=== PATIENT | female | born 1945 | race Caucasian/White ===

== ENCOUNTER 2019-04-27 00:54 | Inpatient (IN) | payer MEDICARE, MEDICAID ==
--- NOTE | 2019-04-27 01:26 | ED Physician Chart ---
ED Chief Complaint/HPI - Patient Information Date Seen:: 04/27/19 Time Seen:: 01:15 Chief Complaint:: agitation History of Present Illness:: Patient had spinal surgery on March 26 or . Since then she's been refusing to take her medicines and has been throwing feces. Patient had dementia diagnosed in 2012. Historian:: Patient, Family Member Review:: Nurse's Note Reviewed ED Review of Systems - Review of Systems General/Constitutional: No fever, No chills Skin: No skin lesions Head: No headache Eyes: No loss of vision ENT: No earache Neck: No neck pain Cardio Vascular: No chest pain Pulmonary: No SOB GI: No nausea, No vomiting, No diarrhea G/U: No dysuria Musculoskeletal: No bone or joint pain Endocrine: No polyuria Psychiatric: Prior psych history Hematopoietic: No bruising Allergic/Immuno: No urticaria Neurological: No syncope ED Past Medical History - Past Medical History Past Medical History: HTN, Dementia Family History: Diabetes Melitus Social History: Non Smoker, No Alcohol Surgical History: None Medication: Reviewed Family Medical History - Family Member Mother History Unknown: Yes ED Physical Exam - Physical Examination General/Constitutional: Well-developed, well-nourished, Alert Other Gen/Cons comments:: does not know the correct year Head: Atraumatic Eyes: Lids, conjuctiva normal, PERRL Skin: Nl inspection ENMT: External ears, nose nl, Lips, teeth, gums nl Neck: No nuchal rigidity Respiratory: Nl effort/Exclusion, Clear to Auscultation Cardio Vascular: RRR, No murmur, gallop, rubs, NL S1 S2 GI: No tenderness/rebounding/guarding, No organomegaly, No hernia, Normal BS's : No CVA tenderness Extremities: No edema Neuro/Psych: No focal deficits Misc: No paraspinal tenderness ED Labs/Radiology/EKG Results - Lab Results Comments:: Laboratory Results WBC 8.4 Th/cmm (4.8-10.8) 04/27/19 01:40 RBC 4.09 Mil/cmm (3.80-5.20) 04/27/19 01:40 Hgb 12.1 gm/dL (12-16) 04/27/19 01:40 Hct 36.7 % (41.0-60) L 04/27/19 01:40 MCV 89.6 fl (81-100) 04/27/19 01:40 MCH 29.7 pg (27.0-31.0) 04/27/19 01:40 MCHC Differential 33.1 pg (28.0-36.0) 04/27/19 01:40 RDW 14.9 % (11.5-20.0) 04/27/19 01:40 Plt Count 295 Th/cmm (150-400) 04/27/19 01:40 MPV 7.3 fl 04/27/19 01:40 Neutrophils % 50.1 % (40.0-80.0) 04/27/19 01:40 Lymphocytes % 35.1 % (20.0-50.0) 04/27/19 01:40 Monocytes % 11.1 % (2.0-10.0) H 04/27/19 01:40 Eosinophils % 3.7 % (0.0-5.0) 04/27/19 01:40 Basophils % 0.0 % (0.0-2.0) 04/27/19 01:40 Sodium 133 mEq/L (136-145) L 04/27/19 01:40 Potassium 3.5 mEq/L (3.5-5.1) 04/27/19 01:40 Chloride 103 mEq/L (98-107) 04/27/19 01:40 Carbon Dioxide 22.5 mEq/L (21.0-31.0) 04/27/19 01:40 Anion Gap 11.0 (7.0-16.0) 04/27/19 01:40 BUN 28 mg/dL (7-25) H 04/27/19 01:40 Creatinine 0.5 mg/dL (0.6-1.2) L 04/27/19 01:40 Est GFR ( Amer) TNP 04/27/19 01:40 Est GFR (Non-Af Amer) TNP 04/27/19 01:40 BUN/Creatinine Ratio 56.0 04/27/19 01:40 Glucose 110 mg/dL (70-105) H 04/27/19 01:40 Calcium 8.9 mg/dL (8.6-10.3) 04/27/19 01:40 Total Bilirubin 0.3 mg/dL (0.3-1.0) 04/27/19 01:40 AST 17 U/L (13-39) 04/27/19 01:40 ALT 16 U/L (7-52) 04/27/19 01:40 Alkaline Phosphatase 121 U/L (34-104) H 04/27/19 01:40 Total Protein 6.8 gm/dL (6.0-8.3) 04/27/19 01:40 Albumin 3.5 gm/dL (3.7-5.3) L 04/27/19 01:40 Globulin 3.3 gm/dL 04/27/19 01:40 Albumin/Globulin Ratio 1.1 (1.0-1.8) 04/27/19 01:40 Triglycerides 166 mg/dL (<150) H 04/27/19 01:40 Cholesterol 168 mg/dL (<200) 04/27/19 01:40 LDL Cholesterol Direct 120 mg/dL (75-193) 04/27/19 01:40 HDL Cholesterol 35 mg/dL (23-92) 04/27/19 01:40 - EKG Interpretations Rate & Rhythm: normal sinus rhythm with a rate of 75 [place]: normal Comments:: [facility] ED Septic Shock - . Is Septic Shock (SBP<90, OR Lactate>4 mmol\L) present?: No ED Reassessment (Disposition) - Reassessment Reassessment Condition:: Unchanged - Diagnosis Diagnosis:: Dementia with agitation - Patient Disposition Admitted to:: [facility] Admitting Medical Physician:: Anjana Martin Admitting Psych Physician:: Amos Castelan Condition at Disposition:: Stable, Unchanged
[2019-04-27 01:56] LABS: % EOSINOPHILS 3.7 % (0.0-5.0); % LYMPHOCYTES 35.1 % (20.0-50.0); % MONOCYTES 11.1 % (2.0-10.0); % NEUTROPHILS 50.1 % (40.0-80.0); EOSINOPHILE ABSOLUTE 0.3 Th/cmm (0.1-0.4); HEMATOCRIT 36.7 % (41.0-60); HEMOGLOBIN 12.1 gm/dL (12-16); LYMPHOCYTE ABSOLUTE 2.9 Th/cmm (1.5-3.0); MEAN CELL VOLUME 89.6 fl (81-100); MEAN CORPUSCULAR HEMOGLOBIN 29.7 pg (27.0-31.0); MEAN CORPUSCULAR HGB CONC 33.1 pg (28.0-36.0); MONOCYTE ABSOLUTE 0.9 Th/cmm (0.3-1.0); NEUTROPHILE ABSOLUTE 4.3 Th/cmm (1.8-8.0); PLATELET COUNT 295 Th/cmm (150-400); RED BLOOD COUNT 4.09 Mil/cmm (3.80-5.20); RED CELL DISTRIBUTION WIDTH 14.9 % (11.5-20.0); WHITE BLOOD COUNT 8.4 Th/cmm (4.8-10.8)
[2019-04-27 02:06] LABS: ALB/GLOB RATIO 1.1 (1.0-1.8); ALBUMIN 3.5 gm/dL (3.7-5.3); ALKALINE PHOSPHATASE 121 U/L (34-104); BILIRUBIN,TOTAL 0.3 mg/dL (0.3-1.0); BUN - UREA NITROGEN 28 mg/dL (7-25); CALCIUM SERUM 8.9 mg/dL (8.6-10.3); CARBON DIOXIDE 22.5 mEq/L (21.0-31.0); CHLORIDE 103 mEq/L (98-107); CHOLESTEROL 168 mg/dL (<200); CREATININE - SERUM 0.5 mg/dL (0.6-1.2); GLUCOSE 110 mg/dL (70-105); HDL -HIGH DENSITY LIPOPROTEIN 35 mg/dL (23-92); POTASSIUM SERUM 3.5 mEq/L (3.5-5.1); SGOT 17 U/L (13-39); SGPT/ALT 16 U/L (7-52); SODIUM SERUM 133 mEq/L (136-145); TOTAL PROTEIN,SERUM 6.8 gm/dL (6.0-8.3); TRIGLYCERIDES 166 mg/dL (<150)
[2019-04-27 03:58] VITALS: BP 131/60
[2019-04-27] MEDS ORDERED: Magnesium Hydroxide (MOM) 30 mL UDC PO PRN (04:10)
[2019-04-27] MEDS ORDERED: Maalox 30 mL Cup PO PRN (04:10)
[2019-04-27] MEDS: Venelex 60gm Tube TP SCH (14:50)
--- NOTE | 2019-04-27 21:15 | Psychiatric Evaluation ---
DATE OF SERVICE: 04/27/2019 INITIAL PSYCHIATRIC EVALUATION IDENTIFICATION DATA: The patient is a 74-year-old female with a history of dementia and psychosis. Apparently, started to refuse care at home and refusing the medications and throwing feces. The patient was becoming more agitated, angry and irritable. The patient was evaluated in the ER and admitted to the hospital. The patient is confused, not able to give much information, did not know her age. PAST PSYCHIATRIC HISTORY: Dementia and psychosis. PAST MEDICAL HISTORY: Spinal surgery recently. Diabetes, hypertension and dementia. PSYCHOSOCIAL HISTORY: The patient requires complete care. Family members are supportive. SUBSTANCE ABUSE HISTORY: Denied. MENTAL STATUS EXAMINATION: Speech is fluent, short sentences and relevant to topic. The patient is oriented to person, knew she was in some kind of facility did not know the name of the hospital. The patient did not know her age. The patient appears to be paranoid, guarded and forgetful. The patient's strengths, the patient is passively accepting treatment. The patient's weakness, lack of insight. ASSESSMENT: Rule out major depressive disorder, severe with psychosis; dementia, Alzheimer's type. MEDICAL: As per medical history. Stressors severe. PLAN: We will admit the patient for hospitalization. We will start with individual and group therapy, assess psychopharmacological intervention. ESTIMATED LENGTH OF STAY: 5-7 days. CRITERIA FOR DISCHARGE: Improved condition. Further stabilization and safe disposition, outpatient treatment plan. [facility]# [id number]
--- NOTE | 2019-04-28 02:03 | Psychiatric Evaluation ---
DATE OF SERVICE: INITIAL EVALUATION AND MENTAL STATUS EXAMINATION PATIENT'S AGE: 74 SEX: Female. PHYSICIAN: Dr. Stone. CHIEF COMPLAINT: Agitation and unable to care for self. HISTORY OF PRESENT ILLNESS: The patient is a 74-year-old female who had recent spinal surgery in the beginning of the month of March of this year. The patient since then has been refusing medications and has been angry and irritable mood and easily agitated. The patient also has been throwing her feces. She also has been having difficulty following any of staff directions and has been angry and in irritable mood. She also has been forgetful and unable to follow directions. PAST PSYCHIATRIC HISTORY: The patient has history of dementia. PAST MEDICAL HISTORY: The patient had recent spinal cord surgery. She also has hypertension. SOCIAL HISTORY: The patient is a poor historian and it is not clear if the patient lives with the family or by herself. ALLERGIES: No known allergies. MENTAL STATUS EXAMINATION: The patient appears older than her stated age. Anxious. Confused. Irritable mood. Thought processes are circumstantial, but ____ flight of ideas and ____. The patient seems to be preoccupied. She denies any hallucinations or delusions but seems to be preoccupied. The patient denies any thoughts of suicide or homicide. The patient is alert, but seems to be disoriented to time, place, person and situation. Impaired immediate and recent memory, but intact remote memory. Poor insight and poor judgment. ASSESSMENT: PRIMARY DIAGNOSIS: Unspecified psychosis. SECONDARY DIAGNOSIS: Dementia, moderate, with psychotic features and behavioral disturbances. TREATMENT PLAN: We will continue Namenda and Aricept and will adjust the dose. Might use antipsychotic medications. Also, continue working on behavioral modifications and adjusting psychotropic medications. ESTIMATED LENGTH OF STAY: 5-7 days PATIENT'S STRENGTHS AND WEAKNESSES: The patient's strength is not clear at this time. Weaknesses are ineffective coping. AFTER DISCHARGE PLAN: Outpatient treatment and followup will continue as an outpatient. CRITERIA FOR DISCHARGE: The patient will not be psychotic and will stabilize with psychotropic medications and will establish outpatient treatment plans. Also will have behavioral modification. [facility]# [id number]
--- NOTE | 2019-04-28 04:02 | History & Physical ---
ADMIT DATE: 04/27/2019 ADMITTING PHYSICIAN: Dr. Castelan. REASON FOR ADMISSION: Psychiatric disorder. HISTORY OF PRESENT ILLNESS: This is a 74-year-old female who was admitted for evaluation of underlying psychiatric illnesses by Dr. Castelan. Dr. Castelan requested medical H and P on this patient. The patient denies any medical complaints. PAST MEDICAL HISTORY: Hypertension. PAST SURGICAL HISTORY: No significant past surgical history. SOCIAL HISTORY: Lives at home. No reported alcohol, tobacco or drug use. CURRENT MEDICATIONS: Per medication reconciliation. ALLERGIES: No known drug allergies. REVIEW OF SYSTEMS: No reported fever, chills or diarrhea, no vomiting, no any other concern reported. PHYSICAL EXAMINATION: VITAL SIGNS: Temperature 98.4, pulse 103, respiration 20, blood pressure 151/76. HEENT: Unremarkable. HEART: S1, S2 normal. LUNGS: Clear to auscultation bilaterally. ABDOMEN: Soft, nontender. NEUROLOGIC: Awake, but confused. Moves all extremities. AVAILABLE LABORATORY DATA: ____. ASSESSMENT: 1. Hypertension. 2. Gastroesophageal reflux disease. 3. Mild hyponatremia. 4. Tachycardia. 5. Psychiatric disorder. PLAN: The patient will continue current blood pressure medication. Monitor lab and vitals. Psych management per psychiatrist. The patient is medically stable. Thank you Dr. Castelan and ____ for allowing us to participate in the care of this patient. [facility]# [id number]
[2019-04-28] MEDS: Venelex 60gm Tube TP SCH (09:27)
--- NOTE | 2019-04-28 19:35 | Progress Notes ---
DATE: 04/28/2019 SUBJECTIVE: The patient was seen, chart reviewed, still forgetful, confused, still irritable. The patient continues to require assistance from staff, but her appetite is fair, sleep is fair and she is taking her medications. ASSESSMENT: The patient is still confused and agitated. PLAN: Continue hospitalization and stabilization. Continue medication management. [facility]# [id number]
[2019-04-29] MEDS: Venelex 60gm Tube TP SCH (09:00)
--- NOTE | 2019-04-29 18:41 | Consultation ---
DATE OF CONSULTATION: 04/28/2019 REFERRING PHYSICIAN: Sharath Tang M.D. TYPE OF CONSULTATION: Psychology. HISTORY OF PRESENT ILLNESS: The patient is a 74-year-old female. The following is by review of the medical record and by the patient's self- report. The patient is being admitted due to increased agitation and anger outbursts as well as refusing medications at home. The record indicates that the patient also had been throwing her feces. The patient was evaluated in the ER and admitted to the geropsychiatric unit for stabilization. Upon interview, the patient is not making much sense and not providing much information. The patient is easily agitated and confused. PAST MEDICAL HISTORY: Please see history and physical by Dr. Becerril. PAST PSYCHIATRIC HISTORY: According to review of the medical record, the patient has a history of dementia. There are no other records available and the details are unknown. SUBSTANCE ABUSE HISTORY: The patient did not answer these questions. Review of the record indicates no history of alcohol, tobacco or illicit drug use. PSYCHOSOCIAL HISTORY: The patient lives at home with her family. The patient did not answer questions about occupational or educational history. The patient states that she is [employer] and that she is . The patient's daughter, Ashley, is very involved in her care. The patient did not answer questions about any history of physical or sexual abuse or any current legal problems. MENTAL STATUS EXAMINATION: The patient appears to be her stated age. The patient's attitude is guarded and superficially cooperative. Eye contact is poor. Speech is responsive. The patient is answering the clinical questions at times relevantly. The patient's mood is irritable and dysphoric. Affect is constricted. Thought process shows to be confused with possible paranoid ideation. The patient denied any auditory or visual hallucinations. There are no command type or persecutory type of delusions; however, the patient seems to be suspicious. The patient seems to be easily agitated. Impulse control is limited. Concentration is poor. The patient's sensorium is alert and oriented to self and place only. The patient did not participate in the memory assessment. The patient's short-term memory seems to be grossly intact. Long-term memory needs further evaluation and is possibly impaired. The patient did not participate in the interpretation of proverbs. Insight is poor. Judgment is compromised. DIAGNOSTIC IMPRESSION: AXIS I: 1. Dementia with behavioral disturbance. 2. Mood disorder, depressed due to medical condition. 3. Rule out major depressive disorder. AXIS II: Deferred. AXIS III: Per Dr. Becerril. TREATMENT PLAN: The patient has been seen by Dr. Tang for psychiatric evaluation and for the management of the patient's psychotropic medications. We will provide supportive psychotherapy to include reality orientation, differentiation, and integration. We will provide de-escalation and limit setting. We will encourage the patient to demonstrate emotional and self-regulation by verbalizing her concerns versus acting out. We will provide a simple anger management skill. We will provide coping strategies for phase of life issues. We will provide motivational enhancement for the patient to become compliant and stay compliant with all aspects of her care and treatment. Thank you, Dr. Tang for this consult and the opportunity to participate in this patient's care. [facility]# [id number] MTDCrystal
--- NOTE | 2019-04-29 20:58 | Progress Notes ---
DATE: SUBJECTIVE: Chart was reviewed and the patient interviewed. Also discussed the patient's condition with the staff and reviewed records and labs. The patient is still having episodes of confusion and irritability, but seems to be less. The patient also is upset with her roommate who is yelling and screaming, which disturbs her. The patient also is still anxious and guarded. Otherwise, the patient is compliant with taking her medications with no side effects of medications. ASSESSMENT: The patient is less agitated. TREATMENT PLAN: Continue to monitor behavior and condition closely. Also, continue adjusting psychotropic medications and work on behavioral modification. [facility]# [id number]
[2019-04-30] MEDS: Venelex 60gm Tube TP SCH (08:23)
--- NOTE | 2019-04-30 21:33 | Progress Notes ---
DATE: 04/30/2019 PSYCHOLOGY PROGRESS NOTE SUBJECTIVE: The patient is seen and is interviewed. Case is discussed with staff. The patient presents as confused and irritable. The patient is less agitated; however, the staff reports the patient is complaining about yelling episodes from her roommate. The patient continues to be guarded and confused about this junior underwriter's visit. Staff reports the patient is compliant with her medications. OBJECTIVE: Mood is irritable. Affect is constricted. Thought process shows to be confused. The patient denied any hallucinations or delusions. The patient is compliant with medication and is able to follow-through with staff direction. ASSESSMENT AND PLAN: The patient appears to be less agitated. We provided positive reinforcement for the patient to stay compliant with her care and treatment. We provided reality orientation, differentiation and integration. We encouraged the patient to verbalize her concerns versus acting out. We provided coping strategies for phase of life issues. We will follow up in 2 days to continue the present treatment if the patient remains admitted on the unit and psychology services are further ordered. JOB# [id number] SELVIN
[2019-05-01] MEDS: Venelex 60gm Tube TP SCH (09:06)
--- NOTE | 2019-05-01 15:06 | Progress Notes ---
DATE: 05/01/2019 SUBJECTIVE: Staff was spoken to. The patient is interviewed. Mood is getting easily irritable and affect is constricted. Insight and judgment are noted to be still impaired. Impulse control is noted to be limited. The patient is screaming and yelling and seems to be in need of constant reassurance. The patient has short-term memory problems. Long-term memory seems to be fair. ASSESSMENT: The patient is still impulsive. PLAN: To continue the patient with the supportive therapy, encouraged the patient to verbalize the concerns rather than to act out. JOB# [id number]
[2019-05-02] MEDS: Venelex 60gm Tube TP SCH (08:24)
--- NOTE | 2019-05-02 13:24 | Progress Notes ---
DATE: 05/02/2019 SUBJECTIVE: Staff was spoken to. The patient is interviewed. Mood is noted to be irritable. Affect is constricted. The patient is stating that she is constipated and staff are reporting that the patient seems to be fixated with her bowel movement and the patient has been isolative and withdrawn. Coping skills are noted to be very poor. The patient has short-term memory deficits. Long-term memory seems to be poor. The patient is reporting that her daughter came by to visit her last night and she is okay to go back to the facility. ASSESSMENT: The patient is still demented. PLAN: To continue the patient with the supportive therapy and closely monitor the patient's behavior. [facility]# [id number]
--- NOTE | 2019-05-02 13:56 | Internal Medicine Prog Note ---
Internal Medicine Subjective - Subjective Service Date: 05/02/19 Patient seen and examined:: with staff Patient is:: awake, verbal, agitated Patient Complaints of:: other (Patient is agressive.) Per staff patient has:: no adverse event, no episodes of fall Internal Medicine Objective - Results Result Diagrams: 04/27/19 01:40 04/27/19 01:40 Recent Labs: Laboratory Last Values WBC 8.4 Th/cmm (4.8-10.8) 04/27/19 01:40 RBC 4.09 Mil/cmm (3.80-5.20) 04/27/19 01:40 Hgb 12.1 gm/dL (12-16) 04/27/19 01:40 Hct 36.7 % (41.0-60) L 04/27/19 01:40 MCV 89.6 fl (81-100) 04/27/19 01:40 MCH 29.7 pg (27.0-31.0) 04/27/19 01:40 MCHC Differential 33.1 pg (28.0-36.0) 04/27/19 01:40 RDW 14.9 % (11.5-20.0) 04/27/19 01:40 Plt Count 295 Th/cmm (150-400) 04/27/19 01:40 MPV 7.3 fl 04/27/19 01:40 Neutrophils % 50.1 % (40.0-80.0) 04/27/19 01:40 Lymphocytes % 35.1 % (20.0-50.0) 04/27/19 01:40 Monocytes % 11.1 % (2.0-10.0) H 04/27/19 01:40 Eosinophils % 3.7 % (0.0-5.0) 04/27/19 01:40 Basophils % 0.0 % (0.0-2.0) 04/27/19 01:40 Sodium 133 mEq/L (136-145) L 04/27/19 01:40 Potassium 3.5 mEq/L (3.5-5.1) 04/27/19 01:40 Chloride 103 mEq/L (98-107) 04/27/19 01:40 Carbon Dioxide 22.5 mEq/L (21.0-31.0) 04/27/19 01:40 Anion Gap 11.0 (7.0-16.0) 04/27/19 01:40 BUN 28 mg/dL (7-25) H 04/27/19 01:40 Creatinine 0.5 mg/dL (0.6-1.2) L 04/27/19 01:40 Est GFR ( Amer) TNP 04/27/19 01:40 Est GFR (Non-Af Amer) TNP 04/27/19 01:40 BUN/Creatinine Ratio 56.0 04/27/19 01:40 Glucose 110 mg/dL (70-105) H 04/27/19 01:40 Calcium 8.9 mg/dL (8.6-10.3) 04/27/19 01:40 Total Bilirubin 0.3 mg/dL (0.3-1.0) 04/27/19 01:40 AST 17 U/L (13-39) 04/27/19 01:40 ALT 16 U/L (7-52) 04/27/19 01:40 Alkaline Phosphatase 121 U/L (34-104) H 04/27/19 01:40 Total Protein 6.8 gm/dL (6.0-8.3) 04/27/19 01:40 Albumin 3.5 gm/dL (3.7-5.3) L 04/27/19 01:40 Globulin 3.3 gm/dL 04/27/19 01:40 Albumin/Globulin Ratio 1.1 (1.0-1.8) 04/27/19 01:40 Triglycerides 166 mg/dL (<150) H 04/27/19 01:40 Cholesterol 168 mg/dL (<200) 04/27/19 01:40 LDL Cholesterol Direct 120 mg/dL (75-193) 04/27/19 01:40 HDL Cholesterol 35 mg/dL (23-92) 04/27/19 01:40 TSH 3.64 uIU/ml (0.34-5.60) 04/27/19 01:40 RPR NONREACTIVE (NONREACTIVE) 04/27/19 01:40 - Physical Exam Vitals and I&O: Vital Signs Temp 97.8 F 05/02/19 06:26 Pulse 96 05/02/19 08:23 Resp 18 05/02/19 06:26 BP 122/55 05/02/19 08:23 Pulse Ox 96 05/02/19 06:26 Intake & Output 05/01/19 05/02/19 05/02/19 18:59 06:59 18:59 Intake Total 120 Balance 120 Intake: Oral 120 Other: # Voids 3 3 # Bowel Movements 1 Stool Characteristics Formed Formed Brown Brown Active Medications: Current Medications Acetaminophen (Tylenol) 650 mg PO Q4HR PRN PRN Reason: Mild Pain / Temp above 100 Stop: 06/26/19 04:09 Last Admin: 04/29/19 23:58 Dose: 650 mg Al Hydrox/Mg Hydrox/Simethicone (Maalox) 30 ml PO Q4HR PRN PRN Reason: GI DISTRESS Stop: 06/26/19 04:09 Amlodipine Besylate (Norvasc) 10 mg PO DAILY [facility] Stop: 06/26/19 08:59 Last Admin: 05/02/19 08:23 Dose: 10 mg Aspirin (Ecotrin) 81 mg PO DAILY [facility] Stop: 06/26/19 08:59 Last Admin: 05/02/19 08:22 Dose: 81 mg Bisacodyl (Dulcolax 10 Mg Supp) 10 mg RC DAILY PRN PRN Reason: Constipation Stop: 07/01/19 09:41 [place] Oil/[place] Balsam/Trypsin (Venelex) 1 appl TP DAILY [facility] Stop: 06/26/19 13:14 Last Admin: 05/02/19 08:24 Dose: 1 appl Donepezil HCl (Aricept) 10 mg PO HS [facility] Stop: 06/26/19 20:59 Last Admin: 05/01/19 20:23 Dose: 10 mg Famotidine (Pepcid) 20 mg PO DAILY [facility]; Protocol Stop: 06/26/19 08:59 Last Admin: 05/02/19 08:22 Dose: 20 mg Ibuprofen (Motrin) 800 mg PO BID PRN PRN Reason: Pain (Moderate) Stop: 06/26/19 04:16 Last Admin: 05/01/19 12:56 Dose: 800 mg Ketoconazole (Nizoral 2% Cream) 0 appl TP DAILY [facility] Stop: 06/26/19 08:59 Last Admin: 05/02/19 08:24 Dose: 1 appl Lorazepam (Ativan) 0.5 mg PO Q4HR PRN; Protocol PRN Reason: Agitation Stop: 05/27/19 04:09 Last Admin: 05/01/19 06:01 Dose: 0.5 mg Magnesium Hydroxide (Milk Of Magnesia) 30 ml PO HS PRN PRN Reason: Constipation Memantine (Namenda) 5 mg PO BID [facility] Stop: 07/01/19 16:59 Zolpidem Tartrate (Ambien) 5 mg PO HS PRN PRN Reason: Insomnia Stop: 06/26/19 04:09 Last Admin: 04/30/19 20:37 Dose: 5 mg Physical Exam: Patient has been in irritable mood, continue to monitor. General: demented HEENT: NC/AT Neck: Supple Lungs: CTAB Cardiovascular: RRR, Normal S1, Normal S2 Abdomen: soft, non-tender Extremities: clear Neurological: no change Internal Medicine Assmt/Plan - Assessment Assessment: Psychiatric disorder. Hypertension. Gerd. Mild Hyponatremia. Tachycardia. - Plan Plan: Continuation of care. Monitor Labs. Continue present meds as directed. Monitor Diet/Nutritional support. Psych management per Psych. PT/OT prn. Safety precaution. Supportive care. Fall precaution, frequent nursing rounds, and as needed restraints to prevent fall. Continue collaborating with consulting specialists, case management and nursing team. Will Monitor patient and continue present care management. Nutritional Asmnt/Malnutr-PDOC - Dietary Evaluation Malnutrition Findings (Please click <Entered> for more info): Nutritional Asmnt/Malnutrition Start: 04/27/19 16: 52 Text: Status: Complete Freq: Protocol: Document 04/27/19 16:52 PAVITHRA (Rec: 04/27/19 16:55 PAVITHRA [email or web address]) Nutritional Asmnt/Malnutrition Patient General Information Nutritional Screening Moderate Risk Diagnosis Psychosis NOS Pertinent Medical Hx/Surgical Hx HTN, Dementia Subjective Information IA, Consult: Dehisced Incision L/S Spine area Pt is a 74-year-old female admitted today (04/27) d/t refusing medications and throwing feces. Per ER chart, Pt has spinal surgery early March. Per wound care note (04/27): Central Lower Lumbo-Sacral Area: Dehisced surgical incision, present on admission. Wound bed has 90% yellow slough, 10% brown slough. No odor, no drainage. Periwound intact. Wound measures 0.9 cm x 0.5 cm x 0.2 cm. Per RN, Pt ate about 60% breakfast and lunch today. Will continue to monitor PO intake and wound healing, as RN stated the surgical wound is barely opened, not draining . HT: 56 WT: 185 LB (84.09 kg) ABW: 144 LB (65.34 kg) BMI: 29.86 (Overweight) GI: WNL, soft, non-tender BM: Not Noted I/O: 240/Not Noted Skin: Area of concern Wound: Mid back 1x1 open Ezio: 20 Diet Order: Cardiac, GUILLERMINA Estimated Energy Needs: ( Geriatric, ABW) 7239-8922 kcals (25-30 kcals/ kg) 65-78g Pro (1.0-1.2 g/kg) 7239-5040 ml (25-30 ml/kg) Current Diet Order/ Nutrition Support Cardiac, GUILLERMINA Pertinent Medications Maalox (PRN), Pepcid, MOM (PRN ) Pertinent Labs 04/27: Hgb/Hct 12.1/36.7, Na 133 , BUN/Cr 28/0.5, Glucose 110, Alk Phos 121, Alb 3.5 Nutritional Hx/Data Height 1.68 m Height (Calculated Centimeters) 167.6 Current Weight (lbs) 83.915 kg Weight (Calculated Kilograms) 83.9 Weight (Calculated Grams) 77698.6 [place] Body Weight 130lb (59.09 kg) % [place] Body Weight 142 Body Mass Index (BMI) 29.8 Weight Status Overweight GI Symptoms GI Symptoms None Last BM Not noted Skin Integrity/Comment: Skin: Area of concern Wound: Mid back 1x1 open Ezio: 20 Current %PO Fair (50-74%) Estimated Nutritional Goals BEE in Kcals: Adj wt of IBW Calories/Kcals/Kg 25-30 Kcals Calculated 6367-5412 Protein: Adj wt of IBW Protein g/k.0-1.2 Protein Calculated 65-78 Fluid: ml 6286-2081 Nutritional Problem 1. Problem Problem Increased nutrient utilization Etiology r/t wound healing Signs/Symptoms: dehisced Incision L/S Spine area Malnutrition Related to Morbid Obesity Malnutrition related to morbid obesity No Intervention/Recommendation Comments 1. Continue with Cardiac, GUILLERMINA diet as ordered. 2. Continue to follow wound care instructions per note. Expected Outcomes/Goals Expected Outcomes/Goals 1. PO intake to meet 75% of nutritional needs. 2 .Monitor PO intake, wt, nutrition related labs, and skin integrity to trend WNL. 3. F/U as moderate risk in 3-5 days, 04/29-04/30
--- NOTE | 2019-05-03 03:18 | Progress Notes ---
DATE: 05/02/2019 PSYCHOLOGY PROGRESS NOTE SUBJECTIVE: The patient is seen in her room. The patient was interviewed. Case is discussed with staff. The patient is alert and responsive. The patient is stating that she is having difficulty with her daughter and she believes that her daughter was the one who placed her in the hospital. The patient states that she believes her daughter wants her to so that she does not have to take care of her. Staff reports the patient has been withdrawn , isolative and not attending any milieu therapy. OBJECTIVE: Mood is depressed and irritable. Affect is mood congruent. Thought process shows to be linear, but mostly circumstantial. The patient denied any auditory or visual hallucinations. However, there is possible paranoid ideation with a persecutory delusion. The patient has been taking her p.o. medications. The patient's behavior again has been withdrawn, anergic and anhedonic. ASSESSMENT AND PLAN: The patient is still having difficulty complying with treatment. We provided remotivation for the patient to become compliant with her treatment and to participate in the milieu therapy. We provided supportive psychotherapy to include reality integration. We provided coping strategies for phase of life issues. We provided solution focus therapy including problem solving and coping methods to assist the patient in being able to develop better communication with her daughter. We will follow up in 2 days to continue the present treatment if the patient is still admitted on the unit. JOB# [id number] MTDCrystal
[2019-05-03] MEDS: Venelex 60gm Tube TP SCH (09:33)
--- NOTE | 2019-05-03 10:40 | Internal Medicine Prog Note ---
Internal Medicine Subjective - Subjective Service Date: 05/03/19 Patient is:: awake, verbal, agitated Patient Complaints of:: other (Patient is agressive.) Per staff patient has:: no adverse event, no episodes of fall Internal Medicine Objective - Results Result Diagrams: 04/27/19 01:40 04/27/19 01:40 Recent Labs: Laboratory Last Values WBC 8.4 Th/cmm (4.8-10.8) 04/27/19 01:40 RBC 4.09 Mil/cmm (3.80-5.20) 04/27/19 01:40 Hgb 12.1 gm/dL (12-16) 04/27/19 01:40 Hct 36.7 % (41.0-60) L 04/27/19 01:40 MCV 89.6 fl (81-100) 04/27/19 01:40 MCH 29.7 pg (27.0-31.0) 04/27/19 01:40 MCHC Differential 33.1 pg (28.0-36.0) 04/27/19 01:40 RDW 14.9 % (11.5-20.0) 04/27/19 01:40 Plt Count 295 Th/cmm (150-400) 04/27/19 01:40 MPV 7.3 fl 04/27/19 01:40 Neutrophils % 50.1 % (40.0-80.0) 04/27/19 01:40 Lymphocytes % 35.1 % (20.0-50.0) 04/27/19 01:40 Monocytes % 11.1 % (2.0-10.0) H 04/27/19 01:40 Eosinophils % 3.7 % (0.0-5.0) 04/27/19 01:40 Basophils % 0.0 % (0.0-2.0) 04/27/19 01:40 Sodium 133 mEq/L (136-145) L 04/27/19 01:40 Potassium 3.5 mEq/L (3.5-5.1) 04/27/19 01:40 Chloride 103 mEq/L (98-107) 04/27/19 01:40 Carbon Dioxide 22.5 mEq/L (21.0-31.0) 04/27/19 01:40 Anion Gap 11.0 (7.0-16.0) 04/27/19 01:40 BUN 28 mg/dL (7-25) H 04/27/19 01:40 Creatinine 0.5 mg/dL (0.6-1.2) L 04/27/19 01:40 Est GFR ( Amer) TNP 04/27/19 01:40 Est GFR (Non-Af Amer) TNP 04/27/19 01:40 BUN/Creatinine Ratio 56.0 04/27/19 01:40 Glucose 110 mg/dL (70-105) H 04/27/19 01:40 Calcium 8.9 mg/dL (8.6-10.3) 04/27/19 01:40 Total Bilirubin 0.3 mg/dL (0.3-1.0) 04/27/19 01:40 AST 17 U/L (13-39) 04/27/19 01:40 ALT 16 U/L (7-52) 04/27/19 01:40 Alkaline Phosphatase 121 U/L (34-104) H 04/27/19 01:40 Total Protein 6.8 gm/dL (6.0-8.3) 04/27/19 01:40 Albumin 3.5 gm/dL (3.7-5.3) L 04/27/19 01:40 Globulin 3.3 gm/dL 04/27/19 01:40 Albumin/Globulin Ratio 1.1 (1.0-1.8) 04/27/19 01:40 Triglycerides 166 mg/dL (<150) H 04/27/19 01:40 Cholesterol 168 mg/dL (<200) 04/27/19 01:40 LDL Cholesterol Direct 120 mg/dL (75-193) 04/27/19 01:40 HDL Cholesterol 35 mg/dL (23-92) 04/27/19 01:40 TSH 3.64 uIU/ml (0.34-5.60) 04/27/19 01:40 RPR NONREACTIVE (NONREACTIVE) 04/27/19 01:40 - Physical Exam Vitals and I&O: Vital Signs Temp 97.2 F 05/03/19 06:31 Pulse 79 05/03/19 09:18 Resp 18 05/03/19 06:31 BP 116/63 05/03/19 09:18 Pulse Ox 99 05/03/19 06:31 Intake & Output 05/02/19 05/03/19 05/03/19 18:59 06:59 18:59 Intake Total 1200 240 Balance 1200 240 Intake: Oral 1200 240 Other: # Voids 3 1 # Bowel Movements 0 0 Stool Characteristics Formed Brown Active Medications: Current Medications Acetaminophen (Tylenol) 650 mg PO Q4HR PRN PRN Reason: Mild Pain / Temp above 100 Stop: 06/26/19 04:09 Last Admin: 04/29/19 23:58 Dose: 650 mg Al Hydrox/Mg Hydrox/Simethicone (Maalox) 30 ml PO Q4HR PRN PRN Reason: GI DISTRESS Stop: 06/26/19 04:09 Amlodipine Besylate (Norvasc) 10 mg PO DAILY [facility] Stop: 06/26/19 08:59 Last Admin: 05/03/19 09:18 Dose: 10 mg Aspirin (Ecotrin) 81 mg PO DAILY [facility] Stop: 06/26/19 08:59 Last Admin: 05/03/19 09:18 Dose: 81 mg Bisacodyl (Dulcolax 10 Mg Supp) 10 mg RC DAILY PRN PRN Reason: Constipation Stop: 07/01/19 09:41 [place] Oil/[place] Balsam/Trypsin (Venelex) 1 appl TP DAILY [facility] Stop: 06/26/19 13:14 Last Admin: 05/03/19 09:33 Dose: 1 appl Donepezil HCl (Aricept) 10 mg PO HS [facility] Stop: 06/26/19 20:59 Last Admin: 05/02/19 21:09 Dose: 10 mg Famotidine (Pepcid) 20 mg PO DAILY [facility]; Protocol Stop: 06/26/19 08:59 Last Admin: 05/03/19 09:19 Dose: 20 mg Ibuprofen (Motrin) 800 mg PO BID PRN PRN Reason: Pain (Moderate) Stop: 06/26/19 04:16 Last Admin: 05/01/19 12:56 Dose: 800 mg Ketoconazole (Nizoral 2% Cream) 0 appl TP DAILY [facility] Stop: 06/26/19 08:59 Last Admin: 05/03/19 09:19 Dose: 1 appl Lorazepam (Ativan) 0.5 mg PO Q4HR PRN; Protocol PRN Reason: Agitation Stop: 05/27/19 04:09 Last Admin: 05/01/19 06:01 Dose: 0.5 mg Magnesium Hydroxide (Milk Of Magnesia) 30 ml PO HS PRN PRN Reason: Constipation Memantine (Namenda) 5 mg PO BID [facility] Stop: 07/01/19 16:59 Last Admin: 05/03/19 09:18 Dose: 5 mg Zolpidem Tartrate (Ambien) 5 mg PO HS PRN PRN Reason: Insomnia Stop: 06/26/19 04:09 Last Admin: 04/30/19 20:37 Dose: 5 mg General: demented HEENT: NC/AT Neck: Supple Lungs: CTAB Cardiovascular: RRR, Normal S1, Normal S2 Abdomen: soft, non-tender Extremities: clear Neurological: no change Nutritional Asmnt/Malnutr-PDOC - Dietary Evaluation Malnutrition Findings (Please click <Entered> for more info): Nutritional Asmnt/Malnutrition Start: 04/27/19 16: 52 Text: Status: Complete Freq: Protocol: Document 04/27/19 16:52 PAVITHRA (Rec: 04/27/19 16:55 PAVITHRA [email or web address]) Nutritional Asmnt/Malnutrition Patient General Information Nutritional Screening Moderate Risk Diagnosis Psychosis NOS Pertinent Medical Hx/Surgical Hx HTN, Dementia Subjective Information IA, Consult: Dehisced Incision L/S Spine area Pt is a 74-year-old female admitted today (04/27) d/t refusing medications and throwing feces. Per ER chart, Pt has spinal surgery early March. Per wound care note (04/27): Central Lower Lumbo-Sacral Area: Dehisced surgical incision, present on admission. Wound bed has 90% yellow slough, 10% brown slough. No odor, no drainage. Periwound intact. Wound measures 0.9 cm x 0.5 cm x 0.2 cm. Per RN, Pt ate about 60% breakfast and lunch today. Will continue to monitor PO intake and wound healing, as RN stated the surgical wound is barely opened, not draining . HT: 56 WT: 185 LB (84.09 kg) ABW: 144 LB (65.34 kg) BMI: 29.86 (Overweight) GI: WNL, soft, non-tender BM: Not Noted I/O: 240/Not Noted Skin: Area of concern Wound: Mid back 1x1 open Ezio: 20 Diet Order: Cardiac, GUILLERMINA Estimated Energy Needs: ( Geriatric, ABW) 8244-4910 kcals (25-30 kcals/ kg) 65-78g Pro (1.0-1.2 g/kg) 5148-8188 ml (25-30 ml/kg) Current Diet Order/ Nutrition Support Cardiac, GUILLERMINA Pertinent Medications Maalox (PRN), Pepcid, MOM (PRN ) Pertinent Labs 04/27: Hgb/Hct 12.1/36.7, Na 133 , BUN/Cr 28/0.5, Glucose 110, Alk Phos 121, Alb 3.5 Nutritional Hx/Data Height 5 ft 6 in Height (Calculated Centimeters) 167.6 Current Weight (lbs) 185 lb Weight (Calculated Kilograms) 83.9 Weight (Calculated Grams) 61254.6 [place] Body Weight 130lb (59.09 kg) % [place] Body Weight 142 Body Mass Index (BMI) 29.8 Weight Status Overweight GI Symptoms GI Symptoms None Last BM Not noted Skin Integrity/Comment: Skin: Area of concern Wound: Mid back 1x1 open Ezio: 20 Current %PO Fair (50-74%) Estimated Nutritional Goals BEE in Kcals: Adj wt of IBW Calories/Kcals/Kg 25-30 Kcals Calculated 5083-8343 Protein: Adj wt of IBW Protein g/k.0-1.2 Protein Calculated 65-78 Fluid: ml 0350-4531 Nutritional Problem 1. Problem Problem Increased nutrient utilization Etiology r/t wound healing Signs/Symptoms: dehisced Incision L/S Spine area Malnutrition Related to Morbid Obesity Malnutrition related to morbid obesity No Intervention/Recommendation Comments 1. Continue with Cardiac, GUILLERMINA diet as ordered. 2. Continue to follow wound care instructions per note. Expected Outcomes/Goals Expected Outcomes/Goals 1. PO intake to meet 75% of nutritional needs. 2 .Monitor PO intake, wt, nutrition related labs, and skin integrity to trend WNL. 3. F/U as moderate risk in 3-5 days, 04/29-04/30
--- NOTE | 2019-05-03 11:07 | Progress Notes ---
DATE: 05/03/2019 SUBJECTIVE: Staff was spoken to. The patient is interviewed. Mood is noted to be dysphoric. Insight and judgment are noted to be still impaired. Impulse control is noted to be poor. The patient is fixated on her bowels. The patient is stating that she needs to have a suppository. The patient's staff are mentioning that they have given something like milk of magnesia yesterday and it is okay, but the patient is reported to have been having problems at this time, again asking for suppositories. Coping skills are noted to be very poor. The patient has short-term as well as long-term memory deficits. ASSESSMENT: The patient is demented and getting paranoid. PLAN: To continue the patient with the supportive therapy and followup. [facility]# [id number]
[2019-05-04] MEDS: Venelex 60gm Tube TP SCH (09:15)
--- NOTE | 2019-05-04 11:20 | Internal Medicine Prog Note ---
Internal Medicine Subjective - Subjective Service Date: 05/04/19 Patient seen and examined:: with staff Patient is:: awake, verbal, agitated Patient Complaints of:: other (Patient isstill very agressive.) Per staff patient has:: no adverse event, no episodes of fall Internal Medicine Objective - Results Result Diagrams: 04/27/19 01:40 04/27/19 01:40 Recent Labs: Laboratory Last Values WBC 8.4 Th/cmm (4.8-10.8) 04/27/19 01:40 RBC 4.09 Mil/cmm (3.80-5.20) 04/27/19 01:40 Hgb 12.1 gm/dL (12-16) 04/27/19 01:40 Hct 36.7 % (41.0-60) L 04/27/19 01:40 MCV 89.6 fl (81-100) 04/27/19 01:40 MCH 29.7 pg (27.0-31.0) 04/27/19 01:40 MCHC Differential 33.1 pg (28.0-36.0) 04/27/19 01:40 RDW 14.9 % (11.5-20.0) 04/27/19 01:40 Plt Count 295 Th/cmm (150-400) 04/27/19 01:40 MPV 7.3 fl 04/27/19 01:40 Neutrophils % 50.1 % (40.0-80.0) 04/27/19 01:40 Lymphocytes % 35.1 % (20.0-50.0) 04/27/19 01:40 Monocytes % 11.1 % (2.0-10.0) H 04/27/19 01:40 Eosinophils % 3.7 % (0.0-5.0) 04/27/19 01:40 Basophils % 0.0 % (0.0-2.0) 04/27/19 01:40 Sodium 133 mEq/L (136-145) L 04/27/19 01:40 Potassium 3.5 mEq/L (3.5-5.1) 04/27/19 01:40 Chloride 103 mEq/L (98-107) 04/27/19 01:40 Carbon Dioxide 22.5 mEq/L (21.0-31.0) 04/27/19 01:40 Anion Gap 11.0 (7.0-16.0) 04/27/19 01:40 BUN 28 mg/dL (7-25) H 04/27/19 01:40 Creatinine 0.5 mg/dL (0.6-1.2) L 04/27/19 01:40 Est GFR ( Amer) TNP 04/27/19 01:40 Est GFR (Non-Af Amer) TNP 04/27/19 01:40 BUN/Creatinine Ratio 56.0 04/27/19 01:40 Glucose 110 mg/dL (70-105) H 04/27/19 01:40 Calcium 8.9 mg/dL (8.6-10.3) 04/27/19 01:40 Total Bilirubin 0.3 mg/dL (0.3-1.0) 04/27/19 01:40 AST 17 U/L (13-39) 04/27/19 01:40 ALT 16 U/L (7-52) 04/27/19 01:40 Alkaline Phosphatase 121 U/L (34-104) H 04/27/19 01:40 Total Protein 6.8 gm/dL (6.0-8.3) 04/27/19 01:40 Albumin 3.5 gm/dL (3.7-5.3) L 04/27/19 01:40 Globulin 3.3 gm/dL 04/27/19 01:40 Albumin/Globulin Ratio 1.1 (1.0-1.8) 04/27/19 01:40 Triglycerides 166 mg/dL (<150) H 04/27/19 01:40 Cholesterol 168 mg/dL (<200) 04/27/19 01:40 LDL Cholesterol Direct 120 mg/dL (75-193) 04/27/19 01:40 HDL Cholesterol 35 mg/dL (23-92) 04/27/19 01:40 TSH 3.64 uIU/ml (0.34-5.60) 04/27/19 01:40 RPR NONREACTIVE (NONREACTIVE) 04/27/19 01:40 - Physical Exam Vitals and I&O: Vital Signs Temp 97.7 F 05/04/19 06:47 Pulse 77 05/04/19 09:14 Resp 18 05/04/19 06:47 BP 125/63 05/04/19 09:14 Pulse Ox 95 05/04/19 06:47 Intake & Output 05/03/19 05/04/19 05/04/19 18:59 06:59 18:59 Intake Total 1100 240 Balance 1100 240 Intake: Oral 1100 240 Other: # Voids 3 2 # Bowel Movements 0 0 Stool Characteristics Formed Brown Active Medications: Current Medications Acetaminophen (Tylenol) 650 mg PO Q4HR PRN PRN Reason: Mild Pain / Temp above 100 Stop: 06/26/19 04:09 Last Admin: 04/29/19 23:58 Dose: 650 mg Al Hydrox/Mg Hydrox/Simethicone (Maalox) 30 ml PO Q4HR PRN PRN Reason: GI DISTRESS Stop: 06/26/19 04:09 Amlodipine Besylate (Norvasc) 10 mg PO DAILY ALENA Stop: 06/26/19 08:59 Last Admin: 05/04/19 09:14 Dose: 10 mg Aspirin (Ecotrin) 81 mg PO DAILY ALENA Stop: 06/26/19 08:59 Last Admin: 05/04/19 09:14 Dose: 81 mg Bisacodyl (Dulcolax 10 Mg Supp) 10 mg RC DAILY PRN PRN Reason: IF MOM INEFFECTIVE Stop: 07/01/19 09:41 [place] Oil/[place] Balsam/Trypsin (Venelex) 1 appl TP DAILY ALENA Stop: 06/26/19 13:14 Last Admin: 05/04/19 09:15 Dose: 1 appl Donepezil HCl (Aricept) 10 mg PO HS ALENA Stop: 06/26/19 20:59 Last Admin: 05/03/19 20:43 Dose: 10 mg Famotidine (Pepcid) 20 mg PO DAILY ALENA; Protocol Stop: 06/26/19 08:59 Last Admin: 05/04/19 09:14 Dose: 20 mg Ibuprofen (Motrin) 800 mg PO BID PRN PRN Reason: Pain (Moderate) Stop: 06/26/19 04:16 Last Admin: 05/03/19 16:36 Dose: 800 mg Ketoconazole (Nizoral 2% Cream) 0 appl TP DAILY ALENA Stop: 06/26/19 08:59 Last Admin: 05/04/19 09:15 Dose: 1 appl Lorazepam (Ativan) 0.5 mg PO Q4HR PRN; Protocol PRN Reason: Agitation Stop: 05/27/19 04:09 Last Admin: 05/01/19 06:01 Dose: 0.5 mg Magnesium Hydroxide (Milk Of Magnesia) 30 ml PO HS PRN PRN Reason: Constipation Memantine (Namenda) 5 mg PO BID ALENA Stop: 07/01/19 16:59 Last Admin: 05/04/19 09:15 Dose: 5 mg Zolpidem Tartrate (Ambien) 5 mg PO HS PRN PRN Reason: Insomnia Stop: 06/26/19 04:09 Last Admin: 05/03/19 20:43 Dose: 5 mg Physical Exam: Patient has been still been irritable mood, continue to monitor. General: demented HEENT: NC/AT Neck: Supple Lungs: CTAB Cardiovascular: RRR, Normal S1, Normal S2 Abdomen: soft, non-tender Extremities: clear Neurological: no change Internal Medicine Assmt/Plan - Assessment Assessment: Psychiatric disorder. Hypertension. Gerd. Mild Hyponatremia. Tachycardia. - Plan Plan: Continuation of care. Monitor Labs. Continue present meds as directed. Monitor Diet/Nutritional support. Psych management per Psych. PT/OT prn. Safety precaution. Supportive care. Fall precaution, frequent nursing rounds, and as needed restraints to prevent fall. Continue collaborating with consulting specialists, case management and nursing team. Will Monitor patient and continue present care management. Nutritional Asmnt/Malnutr-PDOC - Dietary Evaluation Malnutrition Findings (Please click <Entered> for more info): Nutritional Asmnt/Malnutrition Start: 04/27/19 16: 52 Text: Status: Complete Freq: Protocol: Document 04/27/19 16:52 PAVITHRA (Rec: 04/27/19 16:55 PAVITHRA [email or web address]) Nutritional Asmnt/Malnutrition Patient General Information Nutritional Screening Moderate Risk Diagnosis Psychosis NOS Pertinent Medical Hx/Surgical Hx HTN, Dementia Subjective Information IA, Consult: Dehisced Incision L/S Spine area Pt is a 74-year-old female admitted today (04/27) d/t refusing medications and throwing feces. Per ER chart, Pt has spinal surgery early March. Per wound care note (04/27): Central Lower Lumbo-Sacral Area: Dehisced surgical incision, present on admission. Wound bed has 90% yellow slough, 10% brown slough. No odor, no drainage. Periwound intact. Wound measures 0.9 cm x 0.5 cm x 0.2 cm. Per RN, Pt ate about 60% breakfast and lunch today. Will continue to monitor PO intake and wound healing, as RN stated the surgical wound is barely opened, not draining . HT: 56 WT: 185 LB (84.09 kg) ABW: 144 LB (65.34 kg) BMI: 29.86 (Overweight) GI: WNL, soft, non-tender BM: Not Noted I/O: 240/Not Noted Skin: Area of concern Wound: Mid back 1x1 open Ezio: 20 Diet Order: Cardiac, GUILLERMINA Estimated Energy Needs: ( Geriatric, ABW) 0944-3287 kcals (25-30 kcals/ kg) 65-78g Pro (1.0-1.2 g/kg) 9291-7544 ml (25-30 ml/kg) Current Diet Order/ Nutrition Support Cardiac, GUILLERMINA Pertinent Medications Maalox (PRN), Pepcid, MOM (PRN ) Pertinent Labs 04/27: Hgb/Hct 12.1/36.7, Na 133 , BUN/Cr 28/0.5, Glucose 110, Alk Phos 121, Alb 3.5 Nutritional Hx/Data Height 1.68 m Height (Calculated Centimeters) 167.6 Current Weight (lbs) 83.915 kg Weight (Calculated Kilograms) 83.9 Weight (Calculated Grams) 05181.6 [place] Body Weight 130lb (59.09 kg) % [place] Body Weight 142 Body Mass Index (BMI) 29.8 Weight Status Overweight GI Symptoms GI Symptoms None Last BM Not noted Skin Integrity/Comment: Skin: Area of concern Wound: Mid back 1x1 open Ezio: 20 Current %PO Fair (50-74%) Estimated Nutritional Goals BEE in Kcals: Adj wt of IBW Calories/Kcals/Kg 25-30 Kcals Calculated 8376-4815 Protein: Adj wt of IBW Protein g/k.0-1.2 Protein Calculated 65-78 Fluid: ml 0327-1570 Nutritional Problem 1. Problem Problem Increased nutrient utilization Etiology r/t wound healing Signs/Symptoms: dehisced Incision L/S Spine area Malnutrition Related to Morbid Obesity Malnutrition related to morbid obesity No Intervention/Recommendation Comments 1. Continue with Cardiac, GUILLERMINA diet as ordered. 2. Continue to follow wound care instructions per note. Expected Outcomes/Goals Expected Outcomes/Goals 1. PO intake to meet 75% of nutritional needs. 2 .Monitor PO intake, wt, nutrition related labs, and skin integrity to trend WNL. 3. F/U as moderate risk in 3-5 days, 04/29-04/30
--- NOTE | 2019-05-05 05:01 | Progress Notes ---
DATE: 05/04/2019 PSYCHIATRIC PROGRESS NOTE SUBJECTIVE: Staff was spoken to. The patient is interviewed. Mood is noted to be irritable. Affect is constricted. The patient has been displaying very bizarre and regressive behavior. The patient has been trying to dig the feces out of her rectum. The patient's coping skills are noted to be extremely poor. The patient has been getting easily agitated and is not able to contract for safety and hence it is decided to start the patient on low dose of the Seroquel at nighttime and follow the patient with the supportive therapy. Please note that the patient's behavior is strictly danger to self and the patient is displaying regressive behavior. JOB# [id number]
[2019-05-05] MEDS: Venelex 60gm Tube TP SCH (08:47)
--- NOTE | 2019-05-05 16:14 | Internal Medicine Prog Note ---
Internal Medicine Subjective - Subjective Patient is:: awake, verbal, agitated Patient Complaints of:: other (Patient isstill very agressive.) Per staff patient has:: no adverse event, no episodes of fall Internal Medicine Objective - Results Result Diagrams: 04/27/19 01:40 04/27/19 01:40 Recent Labs: Laboratory Last Values WBC 8.4 Th/cmm (4.8-10.8) 04/27/19 01:40 RBC 4.09 Mil/cmm (3.80-5.20) 04/27/19 01:40 Hgb 12.1 gm/dL (12-16) 04/27/19 01:40 Hct 36.7 % (41.0-60) L 04/27/19 01:40 MCV 89.6 fl (81-100) 04/27/19 01:40 MCH 29.7 pg (27.0-31.0) 04/27/19 01:40 MCHC Differential 33.1 pg (28.0-36.0) 04/27/19 01:40 RDW 14.9 % (11.5-20.0) 04/27/19 01:40 Plt Count 295 Th/cmm (150-400) 04/27/19 01:40 MPV 7.3 fl 04/27/19 01:40 Neutrophils % 50.1 % (40.0-80.0) 04/27/19 01:40 Lymphocytes % 35.1 % (20.0-50.0) 04/27/19 01:40 Monocytes % 11.1 % (2.0-10.0) H 04/27/19 01:40 Eosinophils % 3.7 % (0.0-5.0) 04/27/19 01:40 Basophils % 0.0 % (0.0-2.0) 04/27/19 01:40 Sodium 133 mEq/L (136-145) L 04/27/19 01:40 Potassium 3.5 mEq/L (3.5-5.1) 04/27/19 01:40 Chloride 103 mEq/L (98-107) 04/27/19 01:40 Carbon Dioxide 22.5 mEq/L (21.0-31.0) 04/27/19 01:40 Anion Gap 11.0 (7.0-16.0) 04/27/19 01:40 BUN 28 mg/dL (7-25) H 04/27/19 01:40 Creatinine 0.5 mg/dL (0.6-1.2) L 04/27/19 01:40 Est GFR ( Amer) TNP 04/27/19 01:40 Est GFR (Non-Af Amer) TNP 04/27/19 01:40 BUN/Creatinine Ratio 56.0 04/27/19 01:40 Glucose 110 mg/dL (70-105) H 04/27/19 01:40 Calcium 8.9 mg/dL (8.6-10.3) 04/27/19 01:40 Total Bilirubin 0.3 mg/dL (0.3-1.0) 04/27/19 01:40 AST 17 U/L (13-39) 04/27/19 01:40 ALT 16 U/L (7-52) 04/27/19 01:40 Alkaline Phosphatase 121 U/L (34-104) H 04/27/19 01:40 Total Protein 6.8 gm/dL (6.0-8.3) 04/27/19 01:40 Albumin 3.5 gm/dL (3.7-5.3) L 04/27/19 01:40 Globulin 3.3 gm/dL 04/27/19 01:40 Albumin/Globulin Ratio 1.1 (1.0-1.8) 04/27/19 01:40 Triglycerides 166 mg/dL (<150) H 04/27/19 01:40 Cholesterol 168 mg/dL (<200) 04/27/19 01:40 LDL Cholesterol Direct 120 mg/dL (75-193) 04/27/19 01:40 HDL Cholesterol 35 mg/dL (23-92) 04/27/19 01:40 TSH 3.64 uIU/ml (0.34-5.60) 04/27/19 01:40 RPR NONREACTIVE (NONREACTIVE) 04/27/19 01:40 - Physical Exam Vitals and I&O: Vital Signs Temp 98.2 F 05/05/19 06:32 Pulse 88 05/05/19 08:47 Resp 20 05/05/19 06:32 BP 141/71 05/05/19 08:47 Pulse Ox 97 05/05/19 06:32 Intake & Output 05/04/19 05/05/19 05/05/19 18:59 06:59 18:59 Intake Total 1100 240 Output Total 1 Balance 1100 239 Intake: Oral 1100 240 Output: Urine/Stool Mix 1 Other: # Voids 3 1 # Bowel Movements 1 Active Medications: Current Medications Acetaminophen (Tylenol) 650 mg PO Q4HR PRN PRN Reason: Mild Pain / Temp above 100 Stop: 06/26/19 04:09 Last Admin: 04/29/19 23:58 Dose: 650 mg Al Hydrox/Mg Hydrox/Simethicone (Maalox) 30 ml PO Q4HR PRN PRN Reason: GI DISTRESS Stop: 06/26/19 04:09 Amlodipine Besylate (Norvasc) 10 mg PO DAILY ALENA Stop: 06/26/19 08:59 Last Admin: 05/05/19 08:47 Dose: 10 mg Aspirin (Ecotrin) 81 mg PO DAILY ALENA Stop: 06/26/19 08:59 Last Admin: 05/05/19 08:47 Dose: 81 mg Bisacodyl (Dulcolax 10 Mg Supp) 10 mg RC DAILY PRN PRN Reason: IF MOM INEFFECTIVE Stop: 07/01/19 09:41 [place] Oil/[place] Balsam/Trypsin (Venelex) 1 appl TP DAILY ALENA Stop: 06/26/19 13:14 Last Admin: 05/05/19 08:47 Dose: 1 appl Donepezil HCl (Aricept) 10 mg PO HS ALENA Stop: 06/26/19 20:59 Last Admin: 05/04/19 21:38 Dose: 10 mg Famotidine (Pepcid) 20 mg PO DAILY ALENA; Protocol Stop: 06/26/19 08:59 Last Admin: 05/05/19 08:47 Dose: 20 mg Ibuprofen (Motrin) 800 mg PO BID PRN PRN Reason: Pain (Moderate) Stop: 06/26/19 04:16 Last Admin: 05/04/19 16:41 Dose: 800 mg Ketoconazole (Nizoral 2% Cream) 0 appl TP DAILY ALENA Stop: 06/26/19 08:59 Last Admin: 05/05/19 08:47 Dose: 1 appl Lorazepam (Ativan) 0.5 mg PO Q4HR PRN; Protocol PRN Reason: Agitation Stop: 07/03/19 16:16 Last Admin: 05/04/19 16:48 Dose: 0.5 mg Magnesium Hydroxide (Milk Of Magnesia) 30 ml PO HS PRN PRN Reason: Constipation Memantine (Namenda) 5 mg PO BID ALENA Stop: 07/01/19 16:59 Last Admin: 05/05/19 08:48 Dose: 5 mg Quetiapine Fumarate (Seroquel) 12.5 mg PO HS ALENA; Protocol Stop: 07/03/19 20:59 Last Admin: 05/04/19 21:38 Dose: 12.5 mg Zolpidem Tartrate (Ambien) 5 mg PO HS PRN PRN Reason: Insomnia Stop: 07/03/19 16:18 Last Admin: 05/04/19 21:38 Dose: 5 mg Physical Exam: Patient has been still been irritable mood, continue to monitor. General: demented HEENT: NC/AT Neck: Supple Lungs: CTAB Cardiovascular: RRR, Normal S1, Normal S2 Abdomen: soft, non-tender Extremities: clear Neurological: no change Internal Medicine Assmt/Plan - Assessment Assessment: Psychiatric disorder. Hypertension. Gerd. Mild Hyponatremia. Tachycardia. - Plan Plan: Continuation of care. Monitor Labs. Continue present meds as directed. Monitor Diet/Nutritional support. Psych management per Psych. PT/OT prn. Safety precaution. Supportive care. Fall precaution, frequent nursing rounds, and as needed restraints to prevent fall. Continue collaborating with consulting specialists, case management and nursing team. Will Monitor patient and continue present care management. Nutritional Asmnt/Malnutr-PDOC - Dietary Evaluation Malnutrition Findings (Please click <Entered> for more info): Nutritional Asmnt/Malnutrition Start: 04/27/19 16: 52 Text: Status: Complete Freq: Protocol: Document 04/27/19 16:52 DEE DEEMUS (Rec: 04/27/19 16:55 PAVITHRA [email or web address]) Nutritional Asmnt/Malnutrition Patient General Information Nutritional Screening Moderate Risk Diagnosis Psychosis NOS Pertinent Medical Hx/Surgical Hx HTN, Dementia Subjective Information IA, Consult: Dehisced Incision L/S Spine area Pt is a 74-year-old female admitted today (04/27) d/t refusing medications and throwing feces. Per ER chart, Pt has spinal surgery early March. Per wound care note (8/2): Central Lower Lumbo-Sacral Area: Dehisced surgical incision, present on admission. Wound bed has 90% yellow slough, 10% brown slough. No odor, no drainage. Periwound intact. Wound measures 0.9 cm x 0.5 cm x 0.2 cm. Per RN, Pt ate about 60% breakfast and lunch today. Will continue to monitor PO intake and wound healing, as RN stated the surgical wound is barely opened, not draining . HT: 56 WT: 185 LB (84.09 kg) ABW: 144 LB (65.34 kg) BMI: 29.86 (Overweight) GI: WNL, soft, non-tender BM: Not Noted I/O: 240/Not Noted Skin: Area of concern Wound: Mid back 1x1 open Ezio: 20 Diet Order: Cardiac, GUILLERMINA Estimated Energy Needs: ( Geriatric, ABW) 9470-2717 kcals (25-30 kcals/ kg) 65-78g Pro (1.0-1.2 g/kg) 4943-2088 ml (25-30 ml/kg) Current Diet Order/ Nutrition Support Cardiac, GUILLERMINA Pertinent Medications Maalox (PRN), Pepcid, MOM (PRN ) Pertinent Labs 04/27: Hgb/Hct 12.1/36.7, Na 133 , BUN/Cr 28/0.5, Glucose 110, Alk Phos 121, Alb 3.5 Nutritional Hx/Data Height 1.68 m Height (Calculated Centimeters) 167.6 Current Weight (lbs) 83.915 kg Weight (Calculated Kilograms) 83.9 Weight (Calculated Grams) 62885.6 [place] Body Weight 130lb (59.09 kg) % [place] Body Weight 142 Body Mass Index (BMI) 29.8 Weight Status Overweight GI Symptoms GI Symptoms None Last BM Not noted Skin Integrity/Comment: Skin: Area of concern Wound: Mid back 1x1 open Ezio: 20 Current %PO Fair (50-74%) Estimated Nutritional Goals BEE in Kcals: Adj wt of IBW Calories/Kcals/Kg 25-30 Kcals Calculated 2500-2374 Protein: Adj wt of IBW Protein g/k.0-1.2 Protein Calculated 65-78 Fluid: ml 4456-9517 Nutritional Problem 1. Problem Problem Increased nutrient utilization Etiology r/t wound healing Signs/Symptoms: dehisced Incision L/S Spine area Malnutrition Related to Morbid Obesity Malnutrition related to morbid obesity No Intervention/Recommendation Comments 1. Continue with Cardiac, GUILLERMINA diet as ordered. 2. Continue to follow wound care instructions per note. Expected Outcomes/Goals Expected Outcomes/Goals 1. PO intake to meet 75% of nutritional needs. 2 .Monitor PO intake, wt, nutrition related labs, and skin integrity to trend WNL. 3. F/U as moderate risk in 3-5 days, 04/29-04/30
--- NOTE | 2019-05-05 19:09 | Internal Medicine Prog Note ---
Internal Medicine Subjective - Subjective Service Date: 05/05/19 Patient seen and examined:: with staff Patient is:: awake, verbal, agitated Patient Complaints of:: other (Patient isstill very agressive.) Per staff patient has:: no adverse event, no episodes of fall Internal Medicine Objective - Results Result Diagrams: 04/27/19 01:40 04/27/19 01:40 Recent Labs: Laboratory Last Values WBC 8.4 Th/cmm (4.8-10.8) 04/27/19 01:40 RBC 4.09 Mil/cmm (3.80-5.20) 04/27/19 01:40 Hgb 12.1 gm/dL (12-16) 04/27/19 01:40 Hct 36.7 % (41.0-60) L 04/27/19 01:40 MCV 89.6 fl (81-100) 04/27/19 01:40 MCH 29.7 pg (27.0-31.0) 04/27/19 01:40 MCHC Differential 33.1 pg (28.0-36.0) 04/27/19 01:40 RDW 14.9 % (11.5-20.0) 04/27/19 01:40 Plt Count 295 Th/cmm (150-400) 04/27/19 01:40 MPV 7.3 fl 04/27/19 01:40 Neutrophils % 50.1 % (40.0-80.0) 04/27/19 01:40 Lymphocytes % 35.1 % (20.0-50.0) 04/27/19 01:40 Monocytes % 11.1 % (2.0-10.0) H 04/27/19 01:40 Eosinophils % 3.7 % (0.0-5.0) 04/27/19 01:40 Basophils % 0.0 % (0.0-2.0) 04/27/19 01:40 Sodium 133 mEq/L (136-145) L 04/27/19 01:40 Potassium 3.5 mEq/L (3.5-5.1) 04/27/19 01:40 Chloride 103 mEq/L (98-107) 04/27/19 01:40 Carbon Dioxide 22.5 mEq/L (21.0-31.0) 04/27/19 01:40 Anion Gap 11.0 (7.0-16.0) 04/27/19 01:40 BUN 28 mg/dL (7-25) H 04/27/19 01:40 Creatinine 0.5 mg/dL (0.6-1.2) L 04/27/19 01:40 Est GFR ( Amer) TNP 04/27/19 01:40 Est GFR (Non-Af Amer) TNP 04/27/19 01:40 BUN/Creatinine Ratio 56.0 04/27/19 01:40 Glucose 110 mg/dL (70-105) H 04/27/19 01:40 Calcium 8.9 mg/dL (8.6-10.3) 04/27/19 01:40 Total Bilirubin 0.3 mg/dL (0.3-1.0) 04/27/19 01:40 AST 17 U/L (13-39) 04/27/19 01:40 ALT 16 U/L (7-52) 04/27/19 01:40 Alkaline Phosphatase 121 U/L (34-104) H 04/27/19 01:40 Total Protein 6.8 gm/dL (6.0-8.3) 04/27/19 01:40 Albumin 3.5 gm/dL (3.7-5.3) L 04/27/19 01:40 Globulin 3.3 gm/dL 04/27/19 01:40 Albumin/Globulin Ratio 1.1 (1.0-1.8) 04/27/19 01:40 Triglycerides 166 mg/dL (<150) H 04/27/19 01:40 Cholesterol 168 mg/dL (<200) 04/27/19 01:40 LDL Cholesterol Direct 120 mg/dL (75-193) 04/27/19 01:40 HDL Cholesterol 35 mg/dL (23-92) 04/27/19 01:40 TSH 3.64 uIU/ml (0.34-5.60) 04/27/19 01:40 RPR NONREACTIVE (NONREACTIVE) 04/27/19 01:40 - Physical Exam Vitals and I&O: Vital Signs Temp 98.8 F 05/05/19 14:00 Pulse 94 05/05/19 14:00 Resp 20 05/05/19 14:00 BP 123/66 05/05/19 14:00 Pulse Ox 98 05/05/19 14:00 Intake & Output 05/05/19 05/05/19 05/06/19 06:59 18:59 06:59 Intake Total 240 960 Output Total 1 Balance 239 960 Intake: Oral 240 960 Output: Urine/Stool Mix 1 Other: # Voids 1 4 # Bowel Movements 1 Active Medications: Current Medications Acetaminophen (Tylenol) 650 mg PO Q4HR PRN PRN Reason: Mild Pain / Temp above 100 Stop: 06/26/19 04:09 Last Admin: 04/29/19 23:58 Dose: 650 mg Al Hydrox/Mg Hydrox/Simethicone (Maalox) 30 ml PO Q4HR PRN PRN Reason: GI DISTRESS Stop: 06/26/19 04:09 Amlodipine Besylate (Norvasc) 10 mg PO DAILY [facility] Stop: 06/26/19 08:59 Last Admin: 05/05/19 08:47 Dose: 10 mg Aspirin (Ecotrin) 81 mg PO DAILY ALENA Stop: 06/26/19 08:59 Last Admin: 05/05/19 08:47 Dose: 81 mg Bisacodyl (Dulcolax 10 Mg Supp) 10 mg RC DAILY PRN PRN Reason: IF MOM INEFFECTIVE Stop: 07/01/19 09:41 [place] Oil/[place] Balsam/Trypsin (Venelex) 1 appl TP DAILY [facility] Stop: 06/26/19 13:14 Last Admin: 05/05/19 08:47 Dose: 1 appl Donepezil HCl (Aricept) 10 mg PO HS ALENA Stop: 06/26/19 20:59 Last Admin: 05/04/19 21:38 Dose: 10 mg Famotidine (Pepcid) 20 mg PO DAILY ALENA; Protocol Stop: 06/26/19 08:59 Last Admin: 05/05/19 08:47 Dose: 20 mg Ibuprofen (Motrin) 800 mg PO BID PRN PRN Reason: Pain (Moderate) Stop: 06/26/19 04:16 Last Admin: 05/04/19 16:41 Dose: 800 mg Ketoconazole (Nizoral 2% Cream) 0 appl TP DAILY ALENA Stop: 06/26/19 08:59 Last Admin: 05/05/19 08:47 Dose: 1 appl Lorazepam (Ativan) 0.5 mg PO Q4HR PRN; Protocol PRN Reason: Agitation Stop: 07/03/19 16:16 Last Admin: 05/04/19 16:48 Dose: 0.5 mg Magnesium Hydroxide (Milk Of Magnesia) 30 ml PO HS PRN PRN Reason: Constipation Memantine (Namenda) 5 mg PO BID ALENA Stop: 07/01/19 16:59 Last Admin: 05/05/19 16:43 Dose: 5 mg Quetiapine Fumarate (Seroquel) 12.5 mg PO HS ALENA; Protocol Stop: 07/03/19 20:59 Last Admin: 05/04/19 21:38 Dose: 12.5 mg Zolpidem Tartrate (Ambien) 5 mg PO HS PRN PRN Reason: Insomnia Stop: 07/03/19 16:18 Last Admin: 05/04/19 21:38 Dose: 5 mg Physical Exam: Patient remains agitated and in aggressive mood, continue to monitor. General: demented HEENT: NC/AT Neck: Supple Lungs: CTAB Cardiovascular: RRR, Normal S1, Normal S2 Abdomen: soft, non-tender Extremities: clear Neurological: no change Internal Medicine Assmt/Plan - Assessment Assessment: Psychiatric disorder. Hypertension. Gerd. Mild Hyponatremia. Tachycardia. - Plan Plan: Continuation of care. Monitor Labs. Continue present meds as directed. Monitor Diet/Nutritional support. Psych management per Psych. PT/OT prn. Safety precaution. Supportive care. Fall precaution, frequent nursing rounds, and as needed restraints to prevent fall. Continue collaborating with consulting specialists, case management and nursing team. Will Monitor patient and continue present care management. Nutritional Asmnt/Malnutr-PDOC - Dietary Evaluation Malnutrition Findings (Please click <Entered> for more info): Nutritional Asmnt/Malnutrition Start: 04/27/19 16: 52 Text: Status: Complete Freq: Protocol: Document 04/27/19 16:52 PAVITHRA (Rec: 04/27/19 16:55 PAVITHRA [email or web address]) Nutritional Asmnt/Malnutrition Patient General Information Nutritional Screening Moderate Risk Diagnosis Psychosis NOS Pertinent Medical Hx/Surgical Hx HTN, Dementia Subjective Information IA, Consult: Dehisced Incision L/S Spine area Pt is a 74-year-old female admitted today (04/27) d/t refusing medications and throwing feces. Per ER chart, Pt has spinal surgery early March. Per wound care note (04/27): Central Lower Lumbo-Sacral Area: Dehisced surgical incision, present on admission. Wound bed has 90% yellow slough, 10% brown slough. No odor, no drainage. Periwound intact. Wound measures 0.9 cm x 0.5 cm x 0.2 cm. Per RN, Pt ate about 60% breakfast and lunch today. Will continue to monitor PO intake and wound healing, as RN stated the surgical wound is barely opened, not draining . HT: 56 WT: 185 LB (84.09 kg) ABW: 144 LB (65.34 kg) BMI: 29.86 (Overweight) GI: WNL, soft, non-tender BM: Not Noted I/O: 240/Not Noted Skin: Area of concern Wound: Mid back 1x1 open Ezio: 20 Diet Order: Cardiac, GUILLERMINA Estimated Energy Needs: ( Geriatric, ABW) 1817-0737 kcals (25-30 kcals/ kg) 65-78g Pro (1.0-1.2 g/kg) 1163-6688 ml (25-30 ml/kg) Current Diet Order/ Nutrition Support Cardiac, GUILLERMINA Pertinent Medications Maalox (PRN), Pepcid, MOM (PRN ) Pertinent Labs 04/27: Hgb/Hct 12.1/36.7, Na 133 , BUN/Cr 28/0.5, Glucose 110, Alk Phos 121, Alb 3.5 Nutritional Hx/Data Height 1.68 m Height (Calculated Centimeters) 167.6 Current Weight (lbs) 83.915 kg Weight (Calculated Kilograms) 83.9 Weight (Calculated Grams) 38446.6 [place] Body Weight 130lb (59.09 kg) % [place] Body Weight 142 Body Mass Index (BMI) 29.8 Weight Status Overweight GI Symptoms GI Symptoms None Last BM Not noted Skin Integrity/Comment: Skin: Area of concern Wound: Mid back 1x1 open Ezio: 20 Current %PO Fair (50-74%) Estimated Nutritional Goals BEE in Kcals: Adj wt of IBW Calories/Kcals/Kg 25-30 Kcals Calculated 5055-2306 Protein: Adj wt of IBW Protein g/k.0-1.2 Protein Calculated 65-78 Fluid: ml 8442-4806 Nutritional Problem 1. Problem Problem Increased nutrient utilization Etiology r/t wound healing Signs/Symptoms: dehisced Incision L/S Spine area Malnutrition Related to Morbid Obesity Malnutrition related to morbid obesity No Intervention/Recommendation Comments 1. Continue with Cardiac, GUILLERMINA diet as ordered. 2. Continue to follow wound care instructions per note. Expected Outcomes/Goals Expected Outcomes/Goals 1. PO intake to meet 75% of nutritional needs. 2 .Monitor PO intake, wt, nutrition related labs, and skin integrity to trend WNL. 3. F/U as moderate risk in 3-5 days, 04/29-04/30
--- NOTE | 2019-05-05 20:51 | Progress Notes ---
DATE: 05/05/2019 PSYCHIATRIC PROGRESS NOTE SUBJECTIVE: Staff was spoken to. The patient is interviewed. Mood is noted to be irritable. Affect is constricted. The patient is very disheveled and paranoid. The patient has been trying to fingers and then did take the feces out of the rectum. The patient has no insight into her illness. Coping skills are noted to be very poor. The patient is fixated on her bowels. ASSESSMENT: The patient is still demented and paranoid. PLAN: To continue the patient with the supportive therapy, encouraged the patient to verbalize the concerns rather than to act out. [facility]# [id number]
[2019-05-06] MEDS: Venelex 60gm Tube TP SCH (09:07)
--- NOTE | 2019-05-06 15:17 | Internal Medicine Prog Note ---
Internal Medicine Subjective - Subjective Service Date: 05/06/19 Patient seen and examined:: with staff Patient is:: awake, verbal, agitated Patient Complaints of:: other (Patient is very confused.) Per staff patient has:: no adverse event, no episodes of fall Internal Medicine Objective - Results Result Diagrams: 04/27/19 01:40 04/27/19 01:40 Recent Labs: Laboratory Last Values WBC 8.4 Th/cmm (4.8-10.8) 04/27/19 01:40 RBC 4.09 Mil/cmm (3.80-5.20) 04/27/19 01:40 Hgb 12.1 gm/dL (12-16) 04/27/19 01:40 Hct 36.7 % (41.0-60) L 04/27/19 01:40 MCV 89.6 fl (81-100) 04/27/19 01:40 MCH 29.7 pg (27.0-31.0) 04/27/19 01:40 MCHC Differential 33.1 pg (28.0-36.0) 04/27/19 01:40 RDW 14.9 % (11.5-20.0) 04/27/19 01:40 Plt Count 295 Th/cmm (150-400) 04/27/19 01:40 MPV 7.3 fl 04/27/19 01:40 Neutrophils % 50.1 % (40.0-80.0) 04/27/19 01:40 Lymphocytes % 35.1 % (20.0-50.0) 04/27/19 01:40 Monocytes % 11.1 % (2.0-10.0) H 04/27/19 01:40 Eosinophils % 3.7 % (0.0-5.0) 04/27/19 01:40 Basophils % 0.0 % (0.0-2.0) 04/27/19 01:40 Sodium 133 mEq/L (136-145) L 04/27/19 01:40 Potassium 3.5 mEq/L (3.5-5.1) 04/27/19 01:40 Chloride 103 mEq/L (98-107) 04/27/19 01:40 Carbon Dioxide 22.5 mEq/L (21.0-31.0) 04/27/19 01:40 Anion Gap 11.0 (7.0-16.0) 04/27/19 01:40 BUN 28 mg/dL (7-25) H 04/27/19 01:40 Creatinine 0.5 mg/dL (0.6-1.2) L 04/27/19 01:40 Est GFR ( Amer) TNP 04/27/19 01:40 Est GFR (Non-Af Amer) TNP 04/27/19 01:40 BUN/Creatinine Ratio 56.0 04/27/19 01:40 Glucose 110 mg/dL (70-105) H 04/27/19 01:40 Calcium 8.9 mg/dL (8.6-10.3) 04/27/19 01:40 Total Bilirubin 0.3 mg/dL (0.3-1.0) 04/27/19 01:40 AST 17 U/L (13-39) 04/27/19 01:40 ALT 16 U/L (7-52) 04/27/19 01:40 Alkaline Phosphatase 121 U/L (34-104) H 04/27/19 01:40 Total Protein 6.8 gm/dL (6.0-8.3) 04/27/19 01:40 Albumin 3.5 gm/dL (3.7-5.3) L 04/27/19 01:40 Globulin 3.3 gm/dL 04/27/19 01:40 Albumin/Globulin Ratio 1.1 (1.0-1.8) 04/27/19 01:40 Triglycerides 166 mg/dL (<150) H 04/27/19 01:40 Cholesterol 168 mg/dL (<200) 04/27/19 01:40 LDL Cholesterol Direct 120 mg/dL (75-193) 04/27/19 01:40 HDL Cholesterol 35 mg/dL (23-92) 04/27/19 01:40 TSH 3.64 uIU/ml (0.34-5.60) 04/27/19 01:40 RPR NONREACTIVE (NONREACTIVE) 04/27/19 01:40 - Physical Exam Vitals and I&O: Vital Signs Temp 97.6 F 05/06/19 14:00 Pulse 89 05/06/19 14:00 Resp 20 05/06/19 14:00 BP 115/60 05/06/19 14:00 Pulse Ox 96 08/11/19 14:00 Intake & Output 05/05/19 05/06/19 05/06/19 18:59 06:59 18:59 Intake Total 960 120 Balance 960 120 Intake: Oral 960 120 Other: # Voids 4 3 # Bowel Movements 1 Active Medications: Current Medications Acetaminophen (Tylenol) 650 mg PO Q4HR PRN PRN Reason: Mild Pain / Temp above 100 Stop: 06/26/19 04:09 Last Admin: 04/29/19 23:58 Dose: 650 mg Al Hydrox/Mg Hydrox/Simethicone (Maalox) 30 ml PO Q4HR PRN PRN Reason: GI DISTRESS Stop: 06/26/19 04:09 Amlodipine Besylate (Norvasc) 10 mg PO DAILY [facility] Stop: 06/26/19 08:59 Last Admin: 05/06/19 09:06 Dose: 10 mg Aspirin (Ecotrin) 81 mg PO DAILY ALENA Stop: 06/26/19 08:59 Last Admin: 05/06/19 09:07 Dose: 81 mg Bisacodyl (Dulcolax 10 Mg Supp) 10 mg RC DAILY PRN PRN Reason: IF MOM INEFFECTIVE Stop: 07/01/19 09:41 [place] Oil/[place] Balsam/Trypsin (Venelex) 1 appl TP DAILY ALENA Stop: 06/26/19 13:14 Last Admin: 05/06/19 09:07 Dose: 1 appl Donepezil HCl (Aricept) 10 mg PO HS ALENA Stop: 06/26/19 20:59 Last Admin: 05/05/19 20:54 Dose: 10 mg Famotidine (Pepcid) 20 mg PO DAILY ALNEA; Protocol Stop: 06/26/19 08:59 Last Admin: 05/06/19 09:07 Dose: 20 mg Ibuprofen (Motrin) 800 mg PO BID PRN PRN Reason: Pain (Moderate) Stop: 06/26/19 04:16 Last Admin: 05/06/19 11:15 Dose: 800 mg Ketoconazole (Nizoral 2% Cream) 0 appl TP DAILY ALENA Stop: 06/26/19 08:59 Last Admin: 05/06/19 09:08 Dose: 1 appl Lorazepam (Ativan) 0.5 mg PO Q4HR PRN; Protocol PRN Reason: Agitation Stop: 07/03/19 16:16 Last Admin: 05/04/19 16:48 Dose: 0.5 mg Magnesium Hydroxide (Milk Of Magnesia) 30 ml PO HS PRN PRN Reason: Constipation Memantine (Namenda) 5 mg PO BID ALENA Stop: 07/01/19 16:59 Last Admin: 05/06/19 09:07 Dose: 5 mg Quetiapine Fumarate (Seroquel) 25 mg PO HS ALENA; Protocol Stop: 07/05/19 20:59 Zolpidem Tartrate (Ambien) 5 mg PO HS PRN PRN Reason: Insomnia Stop: 07/03/19 16:18 Last Admin: 05/05/19 20:54 Dose: 5 mg Physical Exam: Patient is very confused, fixated on her bowels, continue to monitor, poor coping skills. General: demented HEENT: NC/AT Neck: Supple Lungs: CTAB Cardiovascular: RRR, Normal S1, Normal S2 Abdomen: soft, non-tender Extremities: clear Neurological: no change Internal Medicine Assmt/Plan - Assessment Assessment: Paranoia. Demented. Psychiatric disorder. Hypertension. Gerd. Mild Hyponatremia. Tachycardia. - Plan Plan: Continuation of care. Monitor Labs. Continue present meds as directed. Monitor Diet/Nutritional support. Psych management per Psych. PT/OT prn. Safety precaution. Supportive care. Fall precaution, frequent nursing rounds, and as needed restraints to prevent fall. Continue collaborating with consulting specialists, case management and nursing team. Will Monitor patient and continue present care management. Nutritional Asmnt/Malnutr-PDOC - Dietary Evaluation Malnutrition Findings (Please click <Entered> for more info): Nutritional Asmnt/Malnutrition Start: 04/27/19 16: 52 Text: Status: Complete Freq: Protocol: Document 04/27/19 16:52 PAVITHRA (Rec: 04/27/19 16:55 PAVITHRA [email or web address]) Nutritional Asmnt/Malnutrition Patient General Information Nutritional Screening Moderate Risk Diagnosis Psychosis NOS Pertinent Medical Hx/Surgical Hx HTN, Dementia Subjective Information IA, Consult: Dehisced Incision L/S Spine area Pt is a 74-year-old female admitted today (04/27) d/t refusing medications and throwing feces. Per ER chart, Pt has spinal surgery early March. Per wound care note (04/27): Central Lower Lumbo-Sacral Area: Dehisced surgical incision, present on admission. Wound bed has 90% yellow slough, 10% brown slough. No odor, no drainage. Periwound intact. Wound measures 0.9 cm x 0.5 cm x 0.2 cm. Per RN, Pt ate about 60% breakfast and lunch today. Will continue to monitor PO intake and wound healing, as RN stated the surgical wound is barely opened, not draining . HT: 56 WT: 185 LB (84.09 kg) ABW: 144 LB (65.34 kg) BMI: 29.86 (Overweight) GI: WNL, soft, non-tender BM: Not Noted I/O: 240/Not Noted Skin: Area of concern Wound: Mid back 1x1 open Ezio: 20 Diet Order: Cardiac, GUILLERMINA Estimated Energy Needs: ( Geriatric, ABW) 6195-9901 kcals (25-30 kcals/ kg) 65-78g Pro (1.0-1.2 g/kg) 8875-4348 ml (25-30 ml/kg) Current Diet Order/ Nutrition Support Cardiac, GUILLERMINA Pertinent Medications Maalox (PRN), Pepcid, MOM (PRN ) Pertinent Labs 04/27: Hgb/Hct 12.1/36.7, Na 133 , BUN/Cr 28/0.5, Glucose 110, Alk Phos 121, Alb 3.5 Nutritional Hx/Data Height 1.68 m Height (Calculated Centimeters) 167.6 Current Weight (lbs) 83.915 kg Weight (Calculated Kilograms) 83.9 Weight (Calculated Grams) 27332.6 [place] Body Weight 130lb (59.09 kg) % [place] Body Weight 142 Body Mass Index (BMI) 29.8 Weight Status Overweight GI Symptoms GI Symptoms None Last BM Not noted Skin Integrity/Comment: Skin: Area of concern Wound: Mid back 1x1 open Ezio: 20 Current %PO Fair (50-74%) Estimated Nutritional Goals BEE in Kcals: Adj wt of IBW Calories/Kcals/Kg 25-30 Kcals Calculated 8747-5843 Protein: Adj wt of IBW Protein g/k.0-1.2 Protein Calculated 65-78 Fluid: ml 0365-7073 Nutritional Problem 1. Problem Problem Increased nutrient utilization Etiology r/t wound healing Signs/Symptoms: dehisced Incision L/S Spine area Malnutrition Related to Morbid Obesity Malnutrition related to morbid obesity No Intervention/Recommendation Comments 1. Continue with Cardiac, GUILLERMINA diet as ordered. 2. Continue to follow wound care instructions per note. Expected Outcomes/Goals Expected Outcomes/Goals 1. PO intake to meet 75% of nutritional needs. 2 .Monitor PO intake, wt, nutrition related labs, and skin integrity to trend WNL. 3. F/U as moderate risk in 3-5 days, 04/29-04/30
--- NOTE | 2019-05-06 21:54 | Progress Notes ---
DATE: 05/06/2019 PSYCHIATRIC PROGRESS NOTE SUBJECTIVE: Staff was spoken to. The patient is interviewed. Mood is noted to be irritable. Affect is constricted. Coping skills are noted to be poor. The patient has been noted to be paranoid and has been focused on her bowel movement. The patient is stating that she needs a suppository because she has been constipated. The patient seems to have a difficult time with these paranoid delusions and somatic preoccupation. PLAN: To increase the dose on the Seroquel to 25 mg and follow the patient with the supportive therapy. [facility]# [id number]
--- NOTE | 2019-05-07 11:08 | Internal Medicine Prog Note ---
Internal Medicine Subjective - Subjective Service Date: 05/07/19 Patient is:: awake, verbal, agitated Patient Complaints of:: other (Patient is very confused.) Per staff patient has:: no adverse event, no episodes of fall Internal Medicine Objective - Results Result Diagrams: 04/27/19 01:40 04/27/19 01:40 Recent Labs: Laboratory Last Values WBC 8.4 Th/cmm (4.8-10.8) 04/27/19 01:40 RBC 4.09 Mil/cmm (3.80-5.20) 04/27/19 01:40 Hgb 12.1 gm/dL (12-16) 04/27/19 01:40 Hct 36.7 % (41.0-60) L 04/27/19 01:40 MCV 89.6 fl (81-100) 04/27/19 01:40 MCH 29.7 pg (27.0-31.0) 04/27/19 01:40 MCHC Differential 33.1 pg (28.0-36.0) 04/27/19 01:40 RDW 14.9 % (11.5-20.0) 04/27/19 01:40 Plt Count 295 Th/cmm (150-400) 04/27/19 01:40 MPV 7.3 fl 04/27/19 01:40 Neutrophils % 50.1 % (40.0-80.0) 04/27/19 01:40 Lymphocytes % 35.1 % (20.0-50.0) 04/27/19 01:40 Monocytes % 11.1 % (2.0-10.0) H 04/27/19 01:40 Eosinophils % 3.7 % (0.0-5.0) 04/27/19 01:40 Basophils % 0.0 % (0.0-2.0) 04/27/19 01:40 Sodium 133 mEq/L (136-145) L 04/27/19 01:40 Potassium 3.5 mEq/L (3.5-5.1) 04/27/19 01:40 Chloride 103 mEq/L (98-107) 04/27/19 01:40 Carbon Dioxide 22.5 mEq/L (21.0-31.0) 04/27/19 01:40 Anion Gap 11.0 (7.0-16.0) 04/27/19 01:40 BUN 28 mg/dL (7-25) H 04/27/19 01:40 Creatinine 0.5 mg/dL (0.6-1.2) L 04/27/19 01:40 Est GFR ( Amer) TNP 04/27/19 01:40 Est GFR (Non-Af Amer) TNP 04/27/19 01:40 BUN/Creatinine Ratio 56.0 04/27/19 01:40 Glucose 110 mg/dL (70-105) H 04/27/19 01:40 Calcium 8.9 mg/dL (8.6-10.3) 04/27/19 01:40 Total Bilirubin 0.3 mg/dL (0.3-1.0) 04/27/19 01:40 AST 17 U/L (13-39) 04/27/19 01:40 ALT 16 U/L (7-52) 04/27/19 01:40 Alkaline Phosphatase 121 U/L (34-104) H 04/27/19 01:40 Total Protein 6.8 gm/dL (6.0-8.3) 04/27/19 01:40 Albumin 3.5 gm/dL (3.7-5.3) L 04/27/19 01:40 Globulin 3.3 gm/dL 04/27/19 01:40 Albumin/Globulin Ratio 1.1 (1.0-1.8) 04/27/19 01:40 Triglycerides 166 mg/dL (<150) H 04/27/19 01:40 Cholesterol 168 mg/dL (<200) 04/27/19 01:40 LDL Cholesterol Direct 120 mg/dL (75-193) 04/27/19 01:40 HDL Cholesterol 35 mg/dL (23-92) 04/27/19 01:40 TSH 3.64 uIU/ml (0.34-5.60) 04/27/19 01:40 RPR NONREACTIVE (NONREACTIVE) 04/27/19 01:40 - Physical Exam Vitals and I&O: Vital Signs Temp 98 F 05/07/19 06:28 Pulse 94 05/07/19 09:06 Resp 20 05/07/19 06:28 BP 145/86 05/07/19 09:06 Pulse Ox 98 05/07/19 06:28 Intake & Output 05/06/19 05/07/19 05/07/19 18:59 06:59 18:59 Intake Total 800 120 Balance 800 120 Intake: Oral 800 120 Other: # Voids 3 3 # Bowel Movements 1 Active Medications: Current Medications Acetaminophen (Tylenol) 650 mg PO Q4HR PRN PRN Reason: Mild Pain / Temp above 100 Stop: 06/26/19 04:09 Last Admin: 04/29/19 23:58 Dose: 650 mg Al Hydrox/Mg Hydrox/Simethicone (Maalox) 30 ml PO Q4HR PRN PRN Reason: GI DISTRESS Stop: 06/26/19 04:09 Amlodipine Besylate (Norvasc) 10 mg PO DAILY ALENA Stop: 06/26/19 08:59 Last Admin: 05/07/19 09:06 Dose: 10 mg Aspirin (Ecotrin) 81 mg PO DAILY [facility] Stop: 06/26/19 08:59 Last Admin: 05/07/19 09:06 Dose: 81 mg Bisacodyl (Dulcolax 10 Mg Supp) 10 mg RC DAILY PRN PRN Reason: IF MOM INEFFECTIVE Stop: 07/01/19 09:41 [place] Oil/[place] Balsam/Trypsin (Venelex) 1 appl TP DAILY ALENA Stop: 06/26/19 13:14 Last Admin: 05/06/19 09:07 Dose: 1 appl Donepezil HCl (Aricept) 10 mg PO HS ALENA Stop: 06/26/19 20:59 Last Admin: 05/06/19 21:19 Dose: 10 mg Famotidine (Pepcid) 20 mg PO DAILY ALENA; Protocol Stop: 06/26/19 08:59 Last Admin: 05/07/19 09:06 Dose: 20 mg Ibuprofen (Motrin) 800 mg PO BID PRN PRN Reason: Pain (Moderate) Stop: 06/26/19 04:16 Last Admin: 05/06/19 11:15 Dose: 800 mg Ketoconazole (Nizoral 2% Cream) 0 appl TP DAILY ALENA Stop: 06/26/19 08:59 Last Admin: 05/06/19 09:08 Dose: 1 appl Lorazepam (Ativan) 0.5 mg PO Q4HR PRN; Protocol PRN Reason: Agitation Stop: 07/03/19 16:16 Last Admin: 05/04/19 16:48 Dose: 0.5 mg Magnesium Hydroxide (Milk Of Magnesia) 30 ml PO HS PRN PRN Reason: Constipation Memantine (Namenda) 5 mg PO BID ALENA Stop: 07/01/19 16:59 Last Admin: 05/07/19 09:06 Dose: 5 mg Quetiapine Fumarate (Seroquel) 25 mg PO HS ALENA; Protocol Stop: 07/05/19 20:59 Last Admin: 05/06/19 21:18 Dose: 25 mg Zolpidem Tartrate (Ambien) 5 mg PO HS PRN PRN Reason: Insomnia Stop: 07/03/19 16:18 Last Admin: 05/06/19 21:18 Dose: 5 mg Physical Exam: Patient is still dis-oriented, fixated on her bowels, continue to monitor, very poor coping skills. General: demented HEENT: NC/AT Neck: Supple Lungs: CTAB Cardiovascular: RRR, Normal S1, Normal S2 Abdomen: soft, non-tender Extremities: clear Neurological: no change Internal Medicine Assmt/Plan - Assessment Assessment: Paranoia. Demented. Psychiatric disorder. Hypertension. Gerd. Mild Hyponatremia. Tachycardia. - Plan Plan: Continuation of care. Monitor Labs. Continue present meds as directed. Monitor Diet/Nutritional support. Psych management per Psych. PT/OT prn. Safety precaution. Supportive care. Fall precaution, frequent nursing rounds, and as needed restraints to prevent fall. Continue collaborating with consulting specialists, case management and nursing team. Will Monitor patient and continue present care management. Nutritional Asmnt/Malnutr-PDOC - Dietary Evaluation Malnutrition Findings (Please click <Entered> for more info): Nutritional Asmnt/Malnutrition Start: 04/27/19 16: 52 Text: Status: Complete Freq: Protocol: Document 04/27/19 16:52 PAVITHRA (Rec: 04/27/19 16:55 PAVITHRA [email or web address]) Nutritional Asmnt/Malnutrition Patient General Information Nutritional Screening Moderate Risk Diagnosis Psychosis NOS Pertinent Medical Hx/Surgical Hx HTN, Dementia Subjective Information IA, Consult: Dehisced Incision L/S Spine area Pt is a 74-year-old female admitted today (04/27) d/t refusing medications and throwing feces. Per ER chart, Pt has spinal surgery early March. Per wound care note (04/27): Central Lower Lumbo-Sacral Area: Dehisced surgical incision, present on admission. Wound bed has 90% yellow slough, 10% brown slough. No odor, no drainage. Periwound intact. Wound measures 0.9 cm x 0.5 cm x 0.2 cm. Per RN, Pt ate about 60% breakfast and lunch today. Will continue to monitor PO intake and wound healing, as RN stated the surgical wound is barely opened, not draining . HT: 56 WT: 185 LB (84.09 kg) ABW: 144 LB (65.34 kg) BMI: 29.86 (Overweight) GI: WNL, soft, non-tender BM: Not Noted I/O: 240/Not Noted Skin: Area of concern Wound: Mid back 1x1 open Ezio: 20 Diet Order: Cardiac, GUILLERMINA Estimated Energy Needs: ( Geriatric, ABW) 0350-9652 kcals (25-30 kcals/ kg) 65-78g Pro (1.0-1.2 g/kg) 6165-4815 ml (25-30 ml/kg) Current Diet Order/ Nutrition Support Cardiac, GUILLERMINA Pertinent Medications Maalox (PRN), Pepcid, MOM (PRN ) Pertinent Labs 04/27: Hgb/Hct 12.1/36.7, Na 133 , BUN/Cr 28/0.5, Glucose 110, Alk Phos 121, Alb 3.5 Nutritional Hx/Data Height 1.68 m Height (Calculated Centimeters) 167.6 Current Weight (lbs) 83.915 kg Weight (Calculated Kilograms) 83.9 Weight (Calculated Grams) 11045.6 [place] Body Weight 130lb (59.09 kg) % [place] Body Weight 142 Body Mass Index (BMI) 29.8 Weight Status Overweight GI Symptoms GI Symptoms None Last BM Not noted Skin Integrity/Comment: Skin: Area of concern Wound: Mid back 1x1 open Ezio: 20 Current %PO Fair (50-74%) Estimated Nutritional Goals BEE in Kcals: Adj wt of IBW Calories/Kcals/Kg 25-30 Kcals Calculated 2974-6822 Protein: Adj wt of IBW Protein g/k.0-1.2 Protein Calculated 65-78 Fluid: ml 7345-3667 Nutritional Problem 1. Problem Problem Increased nutrient utilization Etiology r/t wound healing Signs/Symptoms: dehisced Incision L/S Spine area Malnutrition Related to Morbid Obesity Malnutrition related to morbid obesity No Intervention/Recommendation Comments 1. Continue with Cardiac, GUILLERMINA diet as ordered. 2. Continue to follow wound care instructions per note. Expected Outcomes/Goals Expected Outcomes/Goals 1. PO intake to meet 75% of nutritional needs. 2 .Monitor PO intake, wt, nutrition related labs, and skin integrity to trend WNL. 3. F/U as moderate risk in 3-5 days, 04/29-04/30
[2019-05-07] MEDS: Venelex 60gm Tube TP SCH (11:58)
--- NOTE | 2019-05-08 02:46 | Progress Notes ---
DATE: 05/07/2019 PSYCHIATRIC PROGRESS NOTE SUBJECTIVE: Staff was spoken to. The patient is interviewed. Mood is noted to be less irritable. Affect is appropriate. The patient, however, continues to be very paranoid. The patient has been fixated on her bowels. The patient's behavior at times is noted to be very primitive. No side effects to the medications are noted. The patient is currently on 25 mg of the Seroquel and has been able to tolerate it. ASSESSMENT: The patient is still psychotic and demented. PLAN: To continue the patient with the supportive therapy and followup. JOB# [id number]
[2019-05-08] MEDS: Venelex 60gm Tube TP SCH (08:20)
--- NOTE | 2019-05-08 16:21 | Internal Medicine Prog Note ---
Internal Medicine Subjective - Subjective Service Date: 05/08/19 Patient seen and examined:: with staff Patient is:: awake, verbal, agitated Patient Complaints of:: other (Patient is very confused and paranoid.) Per staff patient has:: no adverse event, no episodes of fall Internal Medicine Objective - Results Result Diagrams: 04/27/19 01:40 04/27/19 01:40 Recent Labs: Laboratory Last Values WBC 8.4 Th/cmm (4.8-10.8) 04/27/19 01:40 RBC 4.09 Mil/cmm (3.80-5.20) 04/27/19 01:40 Hgb 12.1 gm/dL (12-16) 04/27/19 01:40 Hct 36.7 % (41.0-60) L 04/27/19 01:40 MCV 89.6 fl (81-100) 04/27/19 01:40 MCH 29.7 pg (27.0-31.0) 04/27/19 01:40 MCHC Differential 33.1 pg (28.0-36.0) 04/27/19 01:40 RDW 14.9 % (11.5-20.0) 04/27/19 01:40 Plt Count 295 Th/cmm (150-400) 04/27/19 01:40 MPV 7.3 fl 04/27/19 01:40 Neutrophils % 50.1 % (40.0-80.0) 04/27/19 01:40 Lymphocytes % 35.1 % (20.0-50.0) 04/27/19 01:40 Monocytes % 11.1 % (2.0-10.0) H 04/27/19 01:40 Eosinophils % 3.7 % (0.0-5.0) 04/27/19 01:40 Basophils % 0.0 % (0.0-2.0) 04/27/19 01:40 Sodium 133 mEq/L (136-145) L 04/27/19 01:40 Potassium 3.5 mEq/L (3.5-5.1) 04/27/19 01:40 Chloride 103 mEq/L (98-107) 04/27/19 01:40 Carbon Dioxide 22.5 mEq/L (21.0-31.0) 04/27/19 01:40 Anion Gap 11.0 (7.0-16.0) 04/27/19 01:40 BUN 28 mg/dL (7-25) H 04/27/19 01:40 Creatinine 0.5 mg/dL (0.6-1.2) L 04/27/19 01:40 Est GFR ( Amer) TNP 04/27/19 01:40 Est GFR (Non-Af Amer) TNP 04/27/19 01:40 BUN/Creatinine Ratio 56.0 04/27/19 01:40 Glucose 110 mg/dL (70-105) H 04/27/19 01:40 Calcium 8.9 mg/dL (8.6-10.3) 04/27/19 01:40 Total Bilirubin 0.3 mg/dL (0.3-1.0) 04/27/19 01:40 AST 17 U/L (13-39) 04/27/19 01:40 ALT 16 U/L (7-52) 04/27/19 01:40 Alkaline Phosphatase 121 U/L (34-104) H 04/27/19 01:40 Total Protein 6.8 gm/dL (6.0-8.3) 04/27/19 01:40 Albumin 3.5 gm/dL (3.7-5.3) L 04/27/19 01:40 Globulin 3.3 gm/dL 04/27/19 01:40 Albumin/Globulin Ratio 1.1 (1.0-1.8) 04/27/19 01:40 Triglycerides 166 mg/dL (<150) H 04/27/19 01:40 Cholesterol 168 mg/dL (<200) 04/27/19 01:40 LDL Cholesterol Direct 120 mg/dL (75-193) 04/27/19 01:40 HDL Cholesterol 35 mg/dL (23-92) 04/27/19 01:40 TSH 3.64 uIU/ml (0.34-5.60) 04/27/19 01:40 RPR NONREACTIVE (NONREACTIVE) 04/27/19 01:40 - Physical Exam Vitals and I&O: Vital Signs Temp 97.8 F 05/08/19 06:27 Pulse 79 05/08/19 08:19 Resp 20 05/08/19 06:27 BP 135/66 05/08/19 08:19 Pulse Ox 97 05/08/19 06:27 Intake & Output 05/07/19 05/08/19 05/08/19 18:59 06:59 18:59 Intake Total 850 240 Output Total 1 Balance 850 239 Intake: Oral 850 240 Output: Urine/Stool Mix 1 Other: # Voids 3 3 # Bowel Movements 1 0 Active Medications: Current Medications Acetaminophen (Tylenol) 650 mg PO Q4HR PRN PRN Reason: Mild Pain / Temp above 100 Stop: 06/26/19 04:09 Last Admin: 04/29/19 23:58 Dose: 650 mg Al Hydrox/Mg Hydrox/Simethicone (Maalox) 30 ml PO Q4HR PRN PRN Reason: GI DISTRESS Stop: 06/26/19 04:09 Amlodipine Besylate (Norvasc) 10 mg PO DAILY [facility] Stop: 06/26/19 08:59 Last Admin: 05/08/19 08:19 Dose: 10 mg Aspirin (Ecotrin) 81 mg PO DAILY ALENA Stop: 06/26/19 08:59 Last Admin: 05/08/19 08:19 Dose: 81 mg Bisacodyl (Dulcolax 10 Mg Supp) 10 mg RC DAILY PRN PRN Reason: IF MOM INEFFECTIVE Stop: 07/01/19 09:41 [place] Oil/[place] Balsam/Trypsin (Venelex) 1 appl TP DAILY ALENA Stop: 06/26/19 13:14 Last Admin: 05/08/19 08:20 Dose: 1 appl Donepezil HCl (Aricept) 10 mg PO HS ALENA Stop: 06/26/19 20:59 Last Admin: 05/07/19 21:28 Dose: 10 mg Famotidine (Pepcid) 20 mg PO DAILY ALENA; Protocol Stop: 06/26/19 08:59 Last Admin: 05/08/19 08:19 Dose: 20 mg Ibuprofen (Motrin) 800 mg PO BID PRN PRN Reason: Pain (Moderate) Stop: 06/26/19 04:16 Last Admin: 05/08/19 08:18 Dose: 800 mg Ketoconazole (Nizoral 2% Cream) 0 appl TP DAILY ALENA Stop: 06/26/19 08:59 Last Admin: 05/08/19 08:21 Dose: 1 appl Lorazepam (Ativan) 0.5 mg PO Q4HR PRN; Protocol PRN Reason: Agitation Stop: 07/03/19 16:16 Last Admin: 05/08/19 08:22 Dose: 0.5 mg Magnesium Hydroxide (Milk Of Magnesia) 30 ml PO HS PRN PRN Reason: Constipation Memantine (Namenda) 5 mg PO BID ALENA Stop: 07/01/19 16:59 Last Admin: 05/08/19 16:19 Dose: 5 mg Quetiapine Fumarate (Seroquel) 25 mg PO HS ALENA; Protocol Stop: 07/05/19 20:59 Last Admin: 05/07/19 21:29 Dose: 25 mg Zolpidem Tartrate (Ambien) 5 mg PO HS PRN PRN Reason: Insomnia Stop: 07/03/19 16:18 Last Admin: 05/07/19 21:28 Dose: 5 mg Physical Exam: Patient is still Paranoid, remains fixated on her bowels, continue to monitor, very poor coping skills. General: demented HEENT: NC/AT Neck: Supple Lungs: CTAB Cardiovascular: RRR, Normal S1, Normal S2 Abdomen: soft, non-tender Extremities: clear Neurological: no change Internal Medicine Assmt/Plan - Assessment Assessment: Paranoia. Demented. Psychiatric disorder. Hypertension. Gerd. Mild Hyponatremia. Tachycardia. - Plan Plan: Continuation of care. Monitor Labs. Continue present meds as directed. Monitor Diet/Nutritional support. Psych management per Psych. PT/OT prn. Safety precaution. Supportive care. Fall precaution, frequent nursing rounds, and as needed restraints to prevent fall. Continue collaborating with consulting specialists, case management and nursing team. Will Monitor patient and continue present care management. Nutritional Asmnt/Malnutr-PDOC - Dietary Evaluation Malnutrition Findings (Please click <Entered> for more info): Nutritional Asmnt/Malnutrition Start: 04/27/19 16: 52 Text: Status: Complete Freq: Protocol: Document 04/27/19 16:52 PAVITHRA (Rec: 04/27/19 16:55 PAVITHRA [email or web address]) Nutritional Asmnt/Malnutrition Patient General Information Nutritional Screening Moderate Risk Diagnosis Psychosis NOS Pertinent Medical Hx/Surgical Hx HTN, Dementia Subjective Information IA, Consult: Dehisced Incision L/S Spine area Pt is a 74-year-old female admitted today (04/27) d/t refusing medications and throwing feces. Per ER chart, Pt has spinal surgery early March. Per wound care note (04/27): Central Lower Lumbo-Sacral Area: Dehisced surgical incision, present on admission. Wound bed has 90% yellow slough, 10% brown slough. No odor, no drainage. Periwound intact. Wound measures 0.9 cm x 0.5 cm x 0.2 cm. Per RN, Pt ate about 60% breakfast and lunch today. Will continue to monitor PO intake and wound healing, as RN stated the surgical wound is barely opened, not draining . HT: 56 WT: 185 LB (84.09 kg) ABW: 144 LB (65.34 kg) BMI: 29.86 (Overweight) GI: WNL, soft, non-tender BM: Not Noted I/O: 240/Not Noted Skin: Area of concern Wound: Mid back 1x1 open Ezio: 20 Diet Order: Cardiac, GUILLERMINA Estimated Energy Needs: ( Geriatric, ABW) 6574-5244 kcals (25-30 kcals/ kg) 65-78g Pro (1.0-1.2 g/kg) 5595-4385 ml (25-30 ml/kg) Current Diet Order/ Nutrition Support Cardiac, GUILLERMINA Pertinent Medications Maalox (PRN), Pepcid, MOM (PRN ) Pertinent Labs 04/27: Hgb/Hct 12.1/36.7, Na 133 , BUN/Cr 28/0.5, Glucose 110, Alk Phos 121, Alb 3.5 Nutritional Hx/Data Height 1.68 m Height (Calculated Centimeters) 167.6 Current Weight (lbs) 83.915 kg Weight (Calculated Kilograms) 83.9 Weight (Calculated Grams) 09306.6 [place] Body Weight 130lb (59.09 kg) % [place] Body Weight 142 Body Mass Index (BMI) 29.8 Weight Status Overweight GI Symptoms GI Symptoms None Last BM Not noted Skin Integrity/Comment: Skin: Area of concern Wound: Mid back 1x1 open Ezio: 20 Current %PO Fair (50-74%) Estimated Nutritional Goals BEE in Kcals: Adj wt of IBW Calories/Kcals/Kg 25-30 Kcals Calculated 4827-4711 Protein: Adj wt of IBW Protein g/k.0-1.2 Protein Calculated 65-78 Fluid: ml 8310-6321 Nutritional Problem 1. Problem Problem Increased nutrient utilization Etiology r/t wound healing Signs/Symptoms: dehisced Incision L/S Spine area Malnutrition Related to Morbid Obesity Malnutrition related to morbid obesity No Intervention/Recommendation Comments 1. Continue with Cardiac, GUILLERMINA diet as ordered. 2. Continue to follow wound care instructions per note. Expected Outcomes/Goals Expected Outcomes/Goals 1. PO intake to meet 75% of nutritional needs. 2 .Monitor PO intake, wt, nutrition related labs, and skin integrity to trend WNL. 3. F/U as moderate risk in 3-5 days, 04/29-04/30
--- NOTE | 2019-05-08 21:27 | General Progress Note ---
Subjective - Review of Systems Service Date: 05/08/19 Subjective: Patient seen and examined awake confused denied any complaints Objective - Results Result Diagrams: 04/27/19 01:40 04/27/19 01:40 Recent Labs: Laboratory Last Values WBC 8.4 Th/cmm (4.8-10.8) 04/27/19 01:40 RBC 4.09 Mil/cmm (3.80-5.20) 04/27/19 01:40 Hgb 12.1 gm/dL (12-16) 04/27/19 01:40 Hct 36.7 % (41.0-60) L 04/27/19 01:40 MCV 89.6 fl (81-100) 04/27/19 01:40 MCH 29.7 pg (27.0-31.0) 04/27/19 01:40 MCHC Differential 33.1 pg (28.0-36.0) 04/27/19 01:40 RDW 14.9 % (11.5-20.0) 04/27/19 01:40 Plt Count 295 Th/cmm (150-400) 04/27/19 01:40 MPV 7.3 fl 04/27/19 01:40 Neutrophils % 50.1 % (40.0-80.0) 04/27/19 01:40 Lymphocytes % 35.1 % (20.0-50.0) 04/27/19 01:40 Monocytes % 11.1 % (2.0-10.0) H 04/27/19 01:40 Eosinophils % 3.7 % (0.0-5.0) 04/27/19 01:40 Basophils % 0.0 % (0.0-2.0) 04/27/19 01:40 Sodium 133 mEq/L (136-145) L 04/27/19 01:40 Potassium 3.5 mEq/L (3.5-5.1) 04/27/19 01:40 Chloride 103 mEq/L (98-107) 04/27/19 01:40 Carbon Dioxide 22.5 mEq/L (21.0-31.0) 04/27/19 01:40 Anion Gap 11.0 (7.0-16.0) 04/27/19 01:40 BUN 28 mg/dL (7-25) H 04/27/19 01:40 Creatinine 0.5 mg/dL (0.6-1.2) L 04/27/19 01:40 Est GFR ( Amer) TNP 04/27/19 01:40 Est GFR (Non-Af Amer) TNP 04/27/19 01:40 BUN/Creatinine Ratio 56.0 04/27/19 01:40 Glucose 110 mg/dL (70-105) H 04/27/19 01:40 Calcium 8.9 mg/dL (8.6-10.3) 04/27/19 01:40 Total Bilirubin 0.3 mg/dL (0.3-1.0) 04/27/19 01:40 AST 17 U/L (13-39) 04/27/19 01:40 ALT 16 U/L (7-52) 04/27/19 01:40 Alkaline Phosphatase 121 U/L (34-104) H 04/27/19 01:40 Total Protein 6.8 gm/dL (6.0-8.3) 04/27/19 01:40 Albumin 3.5 gm/dL (3.7-5.3) L 04/27/19 01:40 Globulin 3.3 gm/dL 04/27/19 01:40 Albumin/Globulin Ratio 1.1 (1.0-1.8) 04/27/19 01:40 Triglycerides 166 mg/dL (<150) H 04/27/19 01:40 Cholesterol 168 mg/dL (<200) 04/27/19 01:40 LDL Cholesterol Direct 120 mg/dL (75-193) 04/27/19 01:40 HDL Cholesterol 35 mg/dL (23-92) 04/27/19 01:40 TSH 3.64 uIU/ml (0.34-5.60) 04/27/19 01:40 RPR NONREACTIVE (NONREACTIVE) 04/27/19 01:40 - Physical Exam Vitals and I&O: Vital Signs Temp 99.4 F 05/08/19 20:27 Pulse 90 05/08/19 20:27 Resp 20 05/08/19 20:27 BP 113/50 05/08/19 20:27 Pulse Ox 98 05/08/19 20:27 Intake & Output 05/08/19 05/08/19 05/09/19 06:59 18:59 06:59 Intake Total 240 900 120 Output Total 1 Balance 239 900 120 Intake: Oral 240 900 120 Output: Urine/Stool Mix 1 Other: # Voids 3 3 2 # Bowel Movements 0 0 0 Active Medications: Current Medications Acetaminophen (Tylenol) 650 mg PO Q4HR PRN PRN Reason: Mild Pain / Temp above 100 Stop: 06/26/19 04:09 Last Admin: 04/29/19 23:58 Dose: 650 mg Al Hydrox/Mg Hydrox/Simethicone (Maalox) 30 ml PO Q4HR PRN PRN Reason: GI DISTRESS Stop: 06/26/19 04:09 Amlodipine Besylate (Norvasc) 10 mg PO DAILY ALENA Stop: 06/26/19 08:59 Last Admin: 05/08/19 08:19 Dose: 10 mg Aspirin (Ecotrin) 81 mg PO DAILY ALENA Stop: 06/26/19 08:59 Last Admin: 05/08/19 08:19 Dose: 81 mg Bisacodyl (Dulcolax 10 Mg Supp) 10 mg RC DAILY PRN PRN Reason: IF MOM INEFFECTIVE Stop: 07/01/19 09:41 [place] Oil/[place] Balsam/Trypsin (Venelex) 1 appl TP DAILY ALENA Stop: 06/26/19 13:14 Last Admin: 05/08/19 08:20 Dose: 1 appl Donepezil HCl (Aricept) 10 mg PO HS ALENA Stop: 06/26/19 20:59 Last Admin: 05/08/19 20:30 Dose: 10 mg Famotidine (Pepcid) 20 mg PO DAILY ALENA; Protocol Stop: 06/26/19 08:59 Last Admin: 05/08/19 08:19 Dose: 20 mg Ibuprofen (Motrin) 800 mg PO BID PRN PRN Reason: Pain (Moderate) Stop: 06/26/19 04:16 Last Admin: 05/08/19 08:18 Dose: 800 mg Ketoconazole (Nizoral 2% Cream) 0 appl TP DAILY ALENA Stop: 06/26/19 08:59 Last Admin: 05/08/19 08:21 Dose: 1 appl Lorazepam (Ativan) 0.5 mg PO Q4HR PRN; Protocol PRN Reason: Agitation Stop: 07/03/19 16:16 Last Admin: 05/08/19 08:22 Dose: 0.5 mg Magnesium Hydroxide (Milk Of Magnesia) 30 ml PO HS PRN PRN Reason: Constipation Memantine (Namenda) 5 mg PO BID ALENA Stop: 07/01/19 16:59 Last Admin: 05/08/19 16:19 Dose: 5 mg Quetiapine Fumarate (Seroquel) 25 mg PO HS ALENA; Protocol Stop: 07/05/19 20:59 Last Admin: 05/08/19 20:30 Dose: 25 mg Zolpidem Tartrate (Ambien) 5 mg PO HS PRN PRN Reason: Insomnia Stop: 07/03/19 16:18 Last Admin: 05/08/19 20:31 Dose: 5 mg Cardiovascular: Regular rate Lungs: Clear to auscultation Assessment/Plan - Assessment Assessment: HTN Weakness Mental health disorder - Plan Plan: Patient's underlying medical issue stable Continue current treatment Psych management per psychiatrist Nutritional Asmnt/Malnutr-PDOC - Dietary Evaluation Malnutrition Findings (Please click <Entered> for more info): Nutritional Asmnt/Malnutrition Start: 04/27/19 16: 52 Text: Status: Complete Freq: Protocol: Document 04/27/19 16:52 PAVITHRA (Rec: 04/27/19 16:55 PAVITHRA [email or web address]) Nutritional Asmnt/Malnutrition Patient General Information Nutritional Screening Moderate Risk Diagnosis Psychosis NOS Pertinent Medical Hx/Surgical Hx HTN, Dementia Subjective Information IA, Consult: Dehisced Incision L/S Spine area Pt is a 74-year-old female admitted today (04/27) d/t refusing medications and throwing feces. Per ER chart, Pt has spinal surgery early March. Per wound care note (04/27): Central Lower Lumbo-Sacral Area: Dehisced surgical incision, present on admission. Wound bed has 90% yellow slough, 10% brown slough. No odor, no drainage. Periwound intact. Wound measures 0.9 cm x 0.5 cm x 0.2 cm. Per RN, Pt ate about 60% breakfast and lunch today. Will continue to monitor PO intake and wound healing, as RN stated the surgical wound is barely opened, not draining . HT: 56 WT: 185 LB (84.09 kg) ABW: 144 LB (65.34 kg) BMI: 29.86 (Overweight) GI: WNL, soft, non-tender BM: Not Noted I/O: 240/Not Noted Skin: Area of concern Wound: Mid back 1x1 open Ezio: 20 Diet Order: Cardiac, GUILLERMINA Estimated Energy Needs: ( Geriatric, ABW) 6495-6605 kcals (25-30 kcals/ kg) 65-78g Pro (1.0-1.2 g/kg) 8674-3373 ml (25-30 ml/kg) Current Diet Order/ Nutrition Support Cardiac, GUILLERMINA Pertinent Medications Maalox (PRN), Pepcid, MOM (PRN ) Pertinent Labs 04/27: Hgb/Hct 12.1/36.7, Na 133 , BUN/Cr 28/0.5, Glucose 110, Alk Phos 121, Alb 3.5 Nutritional Hx/Data Height 1.68 m Height (Calculated Centimeters) 167.6 Current Weight (lbs) 83.915 kg Weight (Calculated Kilograms) 83.9 Weight (Calculated Grams) 53950.6 [place] Body Weight 130lb (59.09 kg) % [place] Body Weight 142 Body Mass Index (BMI) 29.8 Weight Status Overweight GI Symptoms GI Symptoms None Last BM Not noted Skin Integrity/Comment: Skin: Area of concern Wound: Mid back 1x1 open Ezio: 20 Current %PO Fair (50-74%) Estimated Nutritional Goals BEE in Kcals: Adj wt of IBW Calories/Kcals/Kg 25-30 Kcals Calculated 9483-5822 Protein: Adj wt of IBW Protein g/k.0-1.2 Protein Calculated 65-78 Fluid: ml 5084-3753 Nutritional Problem 1. Problem Problem Increased nutrient utilization Etiology r/t wound healing Signs/Symptoms: dehisced Incision L/S Spine area Malnutrition Related to Morbid Obesity Malnutrition related to morbid obesity No Intervention/Recommendation Comments 1. Continue with Cardiac, GUILLERMINA diet as ordered. 2. Continue to follow wound care instructions per note. Expected Outcomes/Goals Expected Outcomes/Goals 1. PO intake to meet 75% of nutritional needs. 2 .Monitor PO intake, wt, nutrition related labs, and skin integrity to trend WNL. 3. F/U as moderate risk in 3-5 days, 04/29-04/30
--- NOTE | 2019-05-09 02:22 | Progress Notes ---
DATE: 05/08/2019 PSYCHIATRIC PROGRESS NOTE SUBJECTIVE: Staff was spoken to. The patient is interviewed. Mood is noted to be irritable. Affect is constricted. Insight and judgment are noted to be still impaired. Impulse control is noted to be limited. The patient is still preoccupied with her bowels. The patient's aggressive behavior has been a major concern. The patient is having short-term memory problems. Long-term memory seems to be poor also. ASSESSMENT: The patient is still paranoid and demented. PLAN: To continue the patient with the current medications and followup. JOB# [id number]
[2019-05-09] MEDS: Venelex 60gm Tube TP SCH ×2 (17:00→17:17)
--- NOTE | 2019-05-10 03:30 | Progress Notes ---
DATE: 05/09/2019 PSYCHIATRIC PROGRESS NOTE SUBJECTIVE: Staff was spoken to. The patient is interviewed. Mood is noted to be irritable. Affect is constricted. The patient has been very disruptive and has been trying to dig the feces out and has been getting very aggressive towards the staff. Today, the patient has no insight into her illness. Coping skills are noted to be very poor. The patient has no place to return to. it portfolio manager has been working with the family in looking for placement for this patient. Since the patient has been having difficult time with the behavior, it is decided to increase the dose of the Seroquel to 25 mg twice a day and follow the patient up. JOB# [id number]
[2019-05-10] MEDS: Venelex 60gm Tube TP SCH (17:40)
--- NOTE | 2019-05-10 21:37 | General Progress Note ---
Subjective - Review of Systems Service Date: 05/10/19 Subjective: Patient seen and examined nursing staff reported that patient lower back has open wound which was draining little bit Objective - Results Result Diagrams: 04/27/19 01:40 04/27/19 01:40 Recent Labs: Laboratory Last Values WBC 8.4 Th/cmm (4.8-10.8) 04/27/19 01:40 RBC 4.09 Mil/cmm (3.80-5.20) 04/27/19 01:40 Hgb 12.1 gm/dL (12-16) 04/27/19 01:40 Hct 36.7 % (41.0-60) L 04/27/19 01:40 MCV 89.6 fl (81-100) 04/27/19 01:40 MCH 29.7 pg (27.0-31.0) 04/27/19 01:40 MCHC Differential 33.1 pg (28.0-36.0) 04/27/19 01:40 RDW 14.9 % (11.5-20.0) 04/27/19 01:40 Plt Count 295 Th/cmm (150-400) 04/27/19 01:40 MPV 7.3 fl 04/27/19 01:40 Neutrophils % 50.1 % (40.0-80.0) 04/27/19 01:40 Lymphocytes % 35.1 % (20.0-50.0) 04/27/19 01:40 Monocytes % 11.1 % (2.0-10.0) H 04/27/19 01:40 Eosinophils % 3.7 % (0.0-5.0) 04/27/19 01:40 Basophils % 0.0 % (0.0-2.0) 04/27/19 01:40 Sodium 133 mEq/L (136-145) L 04/27/19 01:40 Potassium 3.5 mEq/L (3.5-5.1) 04/27/19 01:40 Chloride 103 mEq/L (98-107) 04/27/19 01:40 Carbon Dioxide 22.5 mEq/L (21.0-31.0) 04/27/19 01:40 Anion Gap 11.0 (7.0-16.0) 04/27/19 01:40 BUN 28 mg/dL (7-25) H 04/27/19 01:40 Creatinine 0.5 mg/dL (0.6-1.2) L 04/27/19 01:40 Est GFR ( Amer) TNP 04/27/19 01:40 Est GFR (Non-Af Amer) TNP 04/27/19 01:40 BUN/Creatinine Ratio 56.0 04/27/19 01:40 Glucose 110 mg/dL (70-105) H 04/27/19 01:40 Calcium 8.9 mg/dL (8.6-10.3) 04/27/19 01:40 Total Bilirubin 0.3 mg/dL (0.3-1.0) 04/27/19 01:40 AST 17 U/L (13-39) 04/27/19 01:40 ALT 16 U/L (7-52) 04/27/19 01:40 Alkaline Phosphatase 121 U/L (34-104) H 04/27/19 01:40 Total Protein 6.8 gm/dL (6.0-8.3) 04/27/19 01:40 Albumin 3.5 gm/dL (3.7-5.3) L 04/27/19 01:40 Globulin 3.3 gm/dL 04/27/19 01:40 Albumin/Globulin Ratio 1.1 (1.0-1.8) 04/27/19 01:40 Triglycerides 166 mg/dL (<150) H 04/27/19 01:40 Cholesterol 168 mg/dL (<200) 04/27/19 01:40 LDL Cholesterol Direct 120 mg/dL (75-193) 04/27/19 01:40 HDL Cholesterol 35 mg/dL (23-92) 04/27/19 01:40 TSH 3.64 uIU/ml (0.34-5.60) 04/27/19 01:40 RPR NONREACTIVE (NONREACTIVE) 04/27/19 01:40 - Physical Exam Vitals and I&O: Vital Signs Temp 97.6 F 05/10/19 14:00 Pulse 80 05/10/19 17:41 Resp 18 05/10/19 14:00 BP 131/63 05/10/19 17:41 Pulse Ox 97 05/10/19 14:00 Intake & Output 05/10/19 05/10/19 05/11/19 06:59 18:59 06:59 Intake Total 120 900 Balance 120 900 Intake: Oral 120 900 Other: # Voids 1 4 # Bowel Movements 1 1 Active Medications: Current Medications Acetaminophen (Tylenol) 650 mg PO Q4HR PRN PRN Reason: Mild Pain / Temp above 100 Stop: 06/26/19 04:09 Last Admin: 05/09/19 09:48 Dose: 650 mg Al Hydrox/Mg Hydrox/Simethicone (Maalox) 30 ml PO Q4HR PRN PRN Reason: GI DISTRESS Stop: 06/26/19 04:09 Amlodipine Besylate (Norvasc) 10 mg PO DAILY ALENA Stop: 06/26/19 08:59 Last Admin: 05/10/19 17:41 Dose: Not Given Aspirin (Ecotrin) 81 mg PO DAILY ALENA Stop: 06/26/19 08:59 Last Admin: 05/10/19 08:35 Dose: 81 mg Bisacodyl (Dulcolax 10 Mg Supp) 10 mg RC DAILY PRN PRN Reason: IF MOM INEFFECTIVE Stop: 07/01/19 09:41 [place] Oil/Citizen [place] Balsam/Trypsin (Venelex) 1 appl TP DAILY ALENA Stop: 06/26/19 13:14 Last Admin: 05/10/19 17:40 Dose: 1 appl Donepezil HCl (Aricept) 10 mg PO HS ALENA Stop: 06/26/19 20:59 Last Admin: 05/10/19 21:07 Dose: 10 mg Famotidine (Pepcid) 20 mg PO DAILY ALENA; Protocol Stop: 06/26/19 08:59 Last Admin: 05/10/19 08:34 Dose: 20 mg Ibuprofen (Motrin) 800 mg PO BID PRN PRN Reason: Pain (Moderate) Stop: 06/26/19 04:16 Last Admin: 05/08/19 08:18 Dose: 800 mg Ketoconazole (Nizoral 2% Cream) 0 appl TP DAILY ALENA Stop: 06/26/19 08:59 Last Admin: 05/10/19 16:49 Dose: 1 appl Lorazepam (Ativan) 0.5 mg PO Q4HR PRN; Protocol PRN Reason: Agitation Stop: 07/03/19 16:16 Last Admin: 05/10/19 21:07 Dose: 0.5 mg Magnesium Hydroxide (Milk Of Magnesia) 30 ml PO HS PRN PRN Reason: Constipation Memantine (Namenda) 5 mg PO BID ALENA Stop: 07/01/19 16:59 Last Admin: 05/10/19 16:49 Dose: 5 mg Quetiapine Fumarate (Seroquel) 25 mg PO BID ALENA; Protocol Stop: 07/09/19 08:59 Last Admin: 05/10/19 16:50 Dose: 25 mg Zolpidem Tartrate (Ambien) 5 mg PO HS PRN PRN Reason: Insomnia Stop: 07/03/19 16:18 Last Admin: 05/09/19 20:37 Dose: 5 mg General: No acute distress Cardiovascular: Regular rate Lungs: Clear to auscultation Skin: Other (lower back small open wound at prior surgical site no drainage noted) Assessment/Plan - Assessment Assessment: Open wound on lower back area HTN Weakness Mental health disorder - Plan Plan: Local wound care No signs of infection noted Monitor for fever PT OT SNIF DC plan dw CM Continue current treatment Psych management per psychiatrist Nutritional Asmnt/Malnutr-PDOC - Dietary Evaluation Malnutrition Findings (Please click <Entered> for more info): Nutritional Asmnt/Malnutrition Start: 04/27/19 16: 52 Text: Status: Complete Freq: Protocol: Document 04/27/19 16:52 PAVITHRA (Rec: 04/27/19 16:55 PAVITHRA [email or web address]) Nutritional Asmnt/Malnutrition Patient General Information Nutritional Screening Moderate Risk Diagnosis Psychosis NOS Pertinent Medical Hx/Surgical Hx HTN, Dementia Subjective Information IA, Consult: Dehisced Incision L/S Spine area Pt is a 74-year-old female admitted today (04/27) d/t refusing medications and throwing feces. Per ER chart, Pt has spinal surgery early March. Per wound care note (04/27): Central Lower Lumbo-Sacral Area: Dehisced surgical incision, present on admission. Wound bed has 90% yellow slough, 10% brown slough. No odor, no drainage. Periwound intact. Wound measures 0.9 cm x 0.5 cm x 0.2 cm. Per RN, Pt ate about 60% breakfast and lunch today. Will continue to monitor PO intake and wound healing, as RN stated the surgical wound is barely opened, not draining . HT: 56 WT: 185 LB (84.09 kg) ABW: 144 LB (65.34 kg) BMI: 29.86 (Overweight) GI: WNL, soft, non-tender BM: Not Noted I/O: 240/Not Noted Skin: Area of concern Wound: Mid back 1x1 open Ezio: 20 Diet Order: Cardiac, GUILLERMINA Estimated Energy Needs: ( Geriatric, ABW) 8785-9194 kcals (25-30 kcals/ kg) 65-78g Pro (1.0-1.2 g/kg) 2123-2337 ml (25-30 ml/kg) Current Diet Order/ Nutrition Support Cardiac, GUILLERMINA Pertinent Medications Maalox (PRN), Pepcid, MOM (PRN ) Pertinent Labs 04/27: Hgb/Hct 12.1/36.7, Na 133 , BUN/Cr 28/0.5, Glucose 110, Alk Phos 121, Alb 3.5 Nutritional Hx/Data Height 1.68 m Height (Calculated Centimeters) 167.6 Current Weight (lbs) 83.915 kg Weight (Calculated Kilograms) 83.9 Weight (Calculated Grams) 86970.6 [place] Body Weight 130lb (59.09 kg) % [place] Body Weight 142 Body Mass Index (BMI) 29.8 Weight Status Overweight GI Symptoms GI Symptoms None Last BM Not noted Skin Integrity/Comment: Skin: Area of concern Wound: Mid back 1x1 open Ezio: 20 Current %PO Fair (50-74%) Estimated Nutritional Goals BEE in Kcals: Adj wt of IBW Calories/Kcals/Kg 25-30 Kcals Calculated 2658-6063 Protein: Adj wt of IBW Protein g/k.0-1.2 Protein Calculated 65-78 Fluid: ml [id number] Nutritional Problem 1. Problem Problem Increased nutrient utilization Etiology r/t wound healing Signs/Symptoms: dehisced Incision L/S Spine area Malnutrition Related to Morbid Obesity Malnutrition related to morbid obesity No Intervention/Recommendation Comments 1. Continue with Cardiac, GUILLERMINA diet as ordered. 2. Continue to follow wound care instructions per note. Expected Outcomes/Goals Expected Outcomes/Goals 1. PO intake to meet 75% of nutritional needs. 2 .Monitor PO intake, wt, nutrition related labs, and skin integrity to trend WNL. 3. F/U as moderate risk in 3-5 days, 04/29-04/30
--- NOTE | 2019-05-11 04:20 | Progress Notes ---
DATE: 05/10/2019 PSYCHIATRIC PROGRESS NOTE CHIEF COMPLIANT: "I am okay." The patient is alert and aware that she is in the hospital, but the patient continues to be very paranoid, dysphoria is noted. The patient has been demented and has been trying to display aggressive behavior such as digging her feces and the patient has no insight into her illness. Coping skills are noted to be poor. Impulsivity seems to be coming under control to some extent with the Seroquel. So far she has been able to tolerate the medications. No side effects to the medications are noted. ASSESSMENT: The patient is still depressed. PLAN: To continue the patient with the supportive therapy, encouraged the patient to verbalize the concerns rather than to act out. Plan to closely monitor the patient and then followup. Thank case assembler is going to be requested to help the patient with the placement. JOB# [id number]
[2019-05-11] MEDS: Venelex 60gm Tube TP SCH (09:16)
--- NOTE | 2019-05-11 13:50 | Internal Medicine Prog Note ---
Internal Medicine Subjective - Subjective Patient is:: awake, verbal, agitated, confused, other (paranoid) Patient Complaints of:: other (Patient is very confused and paranoid.) Per staff patient has:: no adverse event, no episodes of fall Internal Medicine Objective - Results Result Diagrams: 04/27/19 01:40 04/27/19 01:40 Recent Labs: Laboratory Last Values WBC 8.4 Th/cmm (4.8-10.8) 04/27/19 01:40 RBC 4.09 Mil/cmm (3.80-5.20) 04/27/19 01:40 Hgb 12.1 gm/dL (12-16) 04/27/19 01:40 Hct 36.7 % (41.0-60) L 04/27/19 01:40 MCV 89.6 fl (81-100) 04/27/19 01:40 MCH 29.7 pg (27.0-31.0) 04/27/19 01:40 MCHC Differential 33.1 pg (28.0-36.0) 04/27/19 01:40 RDW 14.9 % (11.5-20.0) 04/27/19 01:40 Plt Count 295 Th/cmm (150-400) 04/27/19 01:40 MPV 7.3 fl 04/27/19 01:40 Neutrophils % 50.1 % (40.0-80.0) 04/27/19 01:40 Lymphocytes % 35.1 % (20.0-50.0) 04/27/19 01:40 Monocytes % 11.1 % (2.0-10.0) H 04/27/19 01:40 Eosinophils % 3.7 % (0.0-5.0) 04/27/19 01:40 Basophils % 0.0 % (0.0-2.0) 04/27/19 01:40 Sodium 133 mEq/L (136-145) L 04/27/19 01:40 Potassium 3.5 mEq/L (3.5-5.1) 04/27/19 01:40 Chloride 103 mEq/L (98-107) 04/27/19 01:40 Carbon Dioxide 22.5 mEq/L (21.0-31.0) 04/27/19 01:40 Anion Gap 11.0 (7.0-16.0) 04/27/19 01:40 BUN 28 mg/dL (7-25) H 04/27/19 01:40 Creatinine 0.5 mg/dL (0.6-1.2) L 04/27/19 01:40 Est GFR ( Amer) TNP 04/27/19 01:40 Est GFR (Non-Af Amer) TNP 04/27/19 01:40 BUN/Creatinine Ratio 56.0 04/27/19 01:40 Glucose 110 mg/dL (70-105) H 04/27/19 01:40 Calcium 8.9 mg/dL (8.6-10.3) 04/27/19 01:40 Total Bilirubin 0.3 mg/dL (0.3-1.0) 04/27/19 01:40 AST 17 U/L (13-39) 04/27/19 01:40 ALT 16 U/L (7-52) 04/27/19 01:40 Alkaline Phosphatase 121 U/L (34-104) H 04/27/19 01:40 Total Protein 6.8 gm/dL (6.0-8.3) 04/27/19 01:40 Albumin 3.5 gm/dL (3.7-5.3) L 04/27/19 01:40 Globulin 3.3 gm/dL 04/27/19 01:40 Albumin/Globulin Ratio 1.1 (1.0-1.8) 04/27/19 01:40 Triglycerides 166 mg/dL (<150) H 04/27/19 01:40 Cholesterol 168 mg/dL (<200) 04/27/19 01:40 LDL Cholesterol Direct 120 mg/dL (75-193) 04/27/19 01:40 HDL Cholesterol 35 mg/dL (23-92) 04/27/19 01:40 TSH 3.64 uIU/ml (0.34-5.60) 04/27/19 01:40 RPR NONREACTIVE (NONREACTIVE) 04/27/19 01:40 - Physical Exam Vitals and I&O: Vital Signs Temp 97.6 F 05/10/19 14:00 Pulse 80 05/10/19 17:41 Resp 18 05/10/19 14:00 BP 131/63 05/10/19 17:41 Pulse Ox 97 05/10/19 14:00 Intake & Output 05/10/19 05/11/19 05/11/19 18:59 06:59 18:59 Intake Total 900 120 Balance 900 120 Intake: Oral 900 120 Other: # Voids 4 3 # Bowel Movements 1 Active Medications: Current Medications Acetaminophen (Tylenol) 650 mg PO Q4HR PRN PRN Reason: Mild Pain / Temp above 100 Stop: 06/26/19 04:09 Last Admin: 05/09/19 09:48 Dose: 650 mg Al Hydrox/Mg Hydrox/Simethicone (Maalox) 30 ml PO Q4HR PRN PRN Reason: GI DISTRESS Stop: 06/26/19 04:09 Amlodipine Besylate (Norvasc) 10 mg PO DAILY [facility] Stop: 06/26/19 08:59 Last Admin: 05/10/19 17:41 Dose: Not Given Aspirin (Ecotrin) 81 mg PO DAILY [facility] Stop: 06/26/19 08:59 Last Admin: 05/10/19 08:35 Dose: 81 mg Bisacodyl (Dulcolax 10 Mg Supp) 10 mg RC DAILY PRN PRN Reason: IF MOM INEFFECTIVE Stop: 07/01/19 09:41 [place] Oil/[place] Balsam/Trypsin (Venelex) 1 appl TP DAILY [facility] Stop: 06/26/19 13:14 Last Admin: 05/11/19 09:16 Dose: 1 appl Donepezil HCl (Aricept) 10 mg PO HS [facility] Stop: 06/26/19 20:59 Last Admin: 05/10/19 21:07 Dose: 10 mg Famotidine (Pepcid) 20 mg PO DAILY [facility]; Protocol Stop: 06/26/19 08:59 Last Admin: 05/11/19 09:14 Dose: 20 mg Ibuprofen (Motrin) 800 mg PO BID PRN PRN Reason: Pain (Moderate) Stop: 06/26/19 04:16 Last Admin: 05/08/19 08:18 Dose: 800 mg Ketoconazole (Nizoral 2% Cream) 0 appl TP DAILY [facility] Stop: 06/26/19 08:59 Last Admin: 05/10/19 16:49 Dose: 1 appl Lorazepam (Ativan) 0.5 mg PO Q4HR PRN; Protocol PRN Reason: Agitation Stop: 07/03/19 16:16 Last Admin: 05/10/19 21:07 Dose: 0.5 mg Magnesium Hydroxide (Milk Of Magnesia) 30 ml PO HS PRN PRN Reason: Constipation Memantine (Namenda) 5 mg PO BID [facility] Stop: 07/01/19 16:59 Last Admin: 05/11/19 09:14 Dose: 5 mg Quetiapine Fumarate (Seroquel) 25 mg PO BID [facility]; Protocol Stop: 07/09/19 08:59 Last Admin: 05/11/19 09:14 Dose: 25 mg Zolpidem Tartrate (Ambien) 5 mg PO HS PRN PRN Reason: Insomnia Stop: 07/03/19 16:18 Last Admin: 05/10/19 22:05 Dose: 5 mg Physical Exam: Patient is still Paranoid, remains fixated on her bowels, continue to monitor, very poor coping skills. General: demented HEENT: NC/AT Neck: Supple Lungs: CTAB Cardiovascular: RRR, Normal S1, Normal S2 Abdomen: soft, non-tender Extremities: clear Neurological: no change Internal Medicine Assmt/Plan - Assessment Assessment: Paranoia. Demented. Psychiatric disorder. Hypertension. Gerd. Mild Hyponatremia. Tachycardia. - Plan Plan: Continuation of care. Monitor Labs. Continue present meds as directed. Monitor Diet/Nutritional support. Psych management per Psych. PT/OT prn. Safety precaution. Supportive care. Fall precaution, frequent nursing rounds, and as needed restraints to prevent fall. Continue collaborating with consulting specialists, case management and nursing team. Will Monitor patient and continue present care management. Nutritional Asmnt/Malnutr-PDOC - Dietary Evaluation Malnutrition Findings (Please click <Entered> for more info): Nutritional Asmnt/Malnutrition Start: 04/27/19 16: 52 Text: Status: Complete Freq: Protocol: Document 04/27/19 16:52 PAVITHRA (Rec: 04/27/19 16:55 PAVITHRA [email or web address]) Nutritional Asmnt/Malnutrition Patient General Information Nutritional Screening Moderate Risk Diagnosis Psychosis NOS Pertinent Medical Hx/Surgical Hx HTN, Dementia Subjective Information IA, Consult: Dehisced Incision L/S Spine area Pt is a 74-year-old female admitted today (04/27) d/t refusing medications and throwing feces. Per ER chart, Pt has spinal surgery early March. Per wound care note (04/27): Central Lower Lumbo-Sacral Area: Dehisced surgical incision, present on admission. Wound bed has 90% yellow slough, 10% brown slough. No odor, no drainage. Periwound intact. Wound measures 0.9 cm x 0.5 cm x 0.2 cm. Per RN, Pt ate about 60% breakfast and lunch today. Will continue to monitor PO intake and wound healing, as RN stated the surgical wound is barely opened, not draining . HT: 56 WT: 185 LB (84.09 kg) ABW: 144 LB (65.34 kg) BMI: 29.86 (Overweight) GI: WNL, soft, non-tender BM: Not Noted I/O: 240/Not Noted Skin: Area of concern Wound: Mid back 1x1 open Ezio: 20 Diet Order: Cardiac, GUILLERMINA Estimated Energy Needs: ( Geriatric, ABW) 5593-9614 kcals (25-30 kcals/ kg) 65-78g Pro (1.0-1.2 g/kg) 2869-3436 ml (25-30 ml/kg) Current Diet Order/ Nutrition Support Cardiac, GUILLERMINA Pertinent Medications Maalox (PRN), Pepcid, MOM (PRN ) Pertinent Labs 04/27: Hgb/Hct 12.1/36.7, Na 133 , BUN/Cr 28/0.5, Glucose 110, Alk Phos 121, Alb 3.5 Nutritional Hx/Data Height 1.68 m Height (Calculated Centimeters) 167.6 Current Weight (lbs) 83.915 kg Weight (Calculated Kilograms) 83.9 Weight (Calculated Grams) 07014.6 [place] Body Weight 130lb (59.09 kg) % [place] Body Weight 142 Body Mass Index (BMI) 29.8 Weight Status Overweight GI Symptoms GI Symptoms None Last BM Not noted Skin Integrity/Comment: Skin: Area of concern Wound: Mid back 1x1 open Ezio: 20 Current %PO Fair (50-74%) Estimated Nutritional Goals BEE in Kcals: Adj wt of IBW Calories/Kcals/Kg 25-30 Kcals Calculated 9014-9687 Protein: Adj wt of IBW Protein g/k.0-1.2 Protein Calculated 65-78 Fluid: ml 5748-7764 Nutritional Problem 1. Problem Problem Increased nutrient utilization Etiology r/t wound healing Signs/Symptoms: dehisced Incision L/S Spine area Malnutrition Related to Morbid Obesity Malnutrition related to morbid obesity No Intervention/Recommendation Comments 1. Continue with Cardiac, GUILLERMINA diet as ordered. 2. Continue to follow wound care instructions per note. Expected Outcomes/Goals Expected Outcomes/Goals 1. PO intake to meet 75% of nutritional needs. 2 .Monitor PO intake, wt, nutrition related labs, and skin integrity to trend WNL. 3. F/U as moderate risk in 3-5 days, 04/29-04/30
--- NOTE | 2019-05-12 04:12 | Progress Notes ---
DATE: 05/11/2019 SUBJECTIVE: Staff was spoken to. The patient is interviewed. Mood is noted to be irritable. Affect is constricted. Insight and judgment at this time are noted to be still impaired. Impulse control seems to be limited. The patient is currently on Seroquel and has been able to tolerate the medications. No side effects to the medications are noted. The patient at this time has been having difficult time to cope with the stress. The patient is still demented and ____ social service liaison have been looking for placement for this patient, so far no placement is available. ASSESSMENT: The patient is still impulsive. PLAN: To continue the patient with the supportive therapy. I encouraged the patient to verbalize the concerns rather than to act out. Plan to continue the Seroquel at this time and follow. [facility]# [id number]
[2019-05-12] MEDS: Venelex 60gm Tube TP SCH (08:23)
--- NOTE | 2019-05-12 10:51 | Internal Medicine Prog Note ---
Internal Medicine Subjective - Subjective Service Date: 05/12/19 Patient seen and examined:: chart reviewed Patient is:: awake, verbal, agitated, confused, other (pt still irritable judgment impaired) Patient Complaints of:: other (Patient is very confused ) Per staff patient has:: no adverse event, no episodes of fall Internal Medicine Objective - Results Result Diagrams: 04/27/19 01:40 04/27/19 01:40 Recent Labs: Laboratory Last Values WBC 8.4 Th/cmm (4.8-10.8) 04/27/19 01:40 RBC 4.09 Mil/cmm (3.80-5.20) 04/27/19 01:40 Hgb 12.1 gm/dL (12-16) 04/27/19 01:40 Hct 36.7 % (41.0-60) L 04/27/19 01:40 MCV 89.6 fl (81-100) 04/27/19 01:40 MCH 29.7 pg (27.0-31.0) 04/27/19 01:40 MCHC Differential 33.1 pg (28.0-36.0) 04/27/19 01:40 RDW 14.9 % (11.5-20.0) 04/27/19 01:40 Plt Count 295 Th/cmm (150-400) 04/27/19 01:40 MPV 7.3 fl 04/27/19 01:40 Neutrophils % 50.1 % (40.0-80.0) 04/27/19 01:40 Lymphocytes % 35.1 % (20.0-50.0) 04/27/19 01:40 Monocytes % 11.1 % (2.0-10.0) H 04/27/19 01:40 Eosinophils % 3.7 % (0.0-5.0) 04/27/19 01:40 Basophils % 0.0 % (0.0-2.0) 04/27/19 01:40 Sodium 133 mEq/L (136-145) L 04/27/19 01:40 Potassium 3.5 mEq/L (3.5-5.1) 04/27/19 01:40 Chloride 103 mEq/L (98-107) 04/27/19 01:40 Carbon Dioxide 22.5 mEq/L (21.0-31.0) 04/27/19 01:40 Anion Gap 11.0 (7.0-16.0) 04/27/19 01:40 BUN 28 mg/dL (7-25) H 04/27/19 01:40 Creatinine 0.5 mg/dL (0.6-1.2) L 04/27/19 01:40 Est GFR ( Amer) TNP 04/27/19 01:40 Est GFR (Non-Af Amer) TNP 04/27/19 01:40 BUN/Creatinine Ratio 56.0 04/27/19 01:40 Glucose 110 mg/dL (70-105) H 04/27/19 01:40 Calcium 8.9 mg/dL (8.6-10.3) 04/27/19 01:40 Total Bilirubin 0.3 mg/dL (0.3-1.0) 04/27/19 01:40 AST 17 U/L (13-39) 04/27/19 01:40 ALT 16 U/L (7-52) 04/27/19 01:40 Alkaline Phosphatase 121 U/L (34-104) H 04/27/19 01:40 Total Protein 6.8 gm/dL (6.0-8.3) 04/27/19 01:40 Albumin 3.5 gm/dL (3.7-5.3) L 04/27/19 01:40 Globulin 3.3 gm/dL 04/27/19 01:40 Albumin/Globulin Ratio 1.1 (1.0-1.8) 04/27/19 01:40 Triglycerides 166 mg/dL (<150) H 04/27/19 01:40 Cholesterol 168 mg/dL (<200) 04/27/19 01:40 LDL Cholesterol Direct 120 mg/dL (75-193) 04/27/19 01:40 HDL Cholesterol 35 mg/dL (23-92) 04/27/19 01:40 TSH 3.64 uIU/ml (0.34-5.60) 04/27/19 01:40 RPR NONREACTIVE (NONREACTIVE) 04/27/19 01:40 - Physical Exam Vitals and I&O: Vital Signs Temp 96.8 F 05/12/19 06:20 Pulse 74 05/12/19 08:22 Resp 19 05/12/19 06:20 BP 124/68 08/17/19 08:22 Pulse Ox 96 05/12/19 06:20 Intake & Output 05/11/19 05/12/19 05/12/19 18:59 06:59 18:59 Intake Total 980 720 Balance 980 720 Intake: Oral 740 720 Other 240 Other: # Voids 3 1 # Bowel Movements 1 Active Medications: Current Medications Acetaminophen (Tylenol) 650 mg PO Q4HR PRN PRN Reason: Mild Pain / Temp above 100 Stop: 06/26/19 04:09 Last Admin: 05/09/19 09:48 Dose: 650 mg Al Hydrox/Mg Hydrox/Simethicone (Maalox) 30 ml PO Q4HR PRN PRN Reason: GI DISTRESS Stop: 06/26/19 04:09 Amlodipine Besylate (Norvasc) 10 mg PO DAILY [facility] Stop: 06/26/19 08:59 Last Admin: 05/12/19 08:22 Dose: 10 mg Aspirin (Ecotrin) 81 mg PO DAILY [facility] Stop: 06/26/19 08:59 Last Admin: 05/12/19 08:22 Dose: 81 mg Bisacodyl (Dulcolax 10 Mg Supp) 10 mg RC DAILY PRN PRN Reason: IF MOM INEFFECTIVE Stop: 07/01/19 09:41 [place] Oil/[place] Balsam/Trypsin (Venelex) 1 appl TP DAILY [facility] Stop: 06/26/19 13:14 Last Admin: 05/12/19 08:23 Dose: 1 appl Donepezil HCl (Aricept) 10 mg PO HS [facility] Stop: 06/26/19 20:59 Last Admin: 05/11/19 21:00 Dose: 10 mg Famotidine (Pepcid) 20 mg PO DAILY [facility]; Protocol Stop: 06/26/19 08:59 Last Admin: 05/12/19 08:23 Dose: 20 mg Ibuprofen (Motrin) 800 mg PO BID PRN PRN Reason: Pain (Moderate) Stop: 06/26/19 04:16 Last Admin: 05/08/19 08:18 Dose: 800 mg Ketoconazole (Nizoral 2% Cream) 0 appl TP DAILY [facility] Stop: 06/26/19 08:59 Last Admin: 05/12/19 08:23 Dose: 1 appl Lorazepam (Ativan) 0.5 mg PO Q4HR PRN; Protocol PRN Reason: Agitation Stop: 07/03/19 16:16 Last Admin: 05/10/19 21:07 Dose: 0.5 mg Magnesium Hydroxide (Milk Of Magnesia) 30 ml PO HS PRN PRN Reason: Constipation Memantine (Namenda) 5 mg PO BID [facility] Stop: 07/01/19 16:59 Last Admin: 05/12/19 08:24 Dose: 5 mg Quetiapine Fumarate (Seroquel) 25 mg PO BID [facility]; Protocol Stop: 07/09/19 08:59 Last Admin: 05/12/19 08:24 Dose: 25 mg Zolpidem Tartrate (Ambien) 5 mg PO HS PRN PRN Reason: Insomnia Stop: 07/03/19 16:18 Last Admin: 05/11/19 21:26 Dose: 5 mg Physical Exam: Patient is still Paranoid, remains fixated on her bowels, continue to monitor, very poor coping skills. General: demented HEENT: NC/AT Neck: Supple Lungs: CTAB Cardiovascular: RRR, Normal S1, Normal S2 Abdomen: soft, non-tender Extremities: clear Neurological: no change Internal Medicine Assmt/Plan - Assessment Assessment: Paranoia. Demented. Psychiatric disorder. Hypertension. Gerd. Mild Hyponatremia. Tachycardia. - Plan Plan: Continue present meds as directed. as per psych monitor vitals/diet labs Safety precaution. Supportive care. Fall precaution Nutritional Asmnt/Malnutr-PDOC - Dietary Evaluation Malnutrition Findings (Please click <Entered> for more info): Nutritional Asmnt/Malnutrition Start: 04/27/19 16: 52 Text: Status: Complete Freq: Protocol: Document 04/27/19 16:52 PAVITHRA (Rec: 04/27/19 16:55 PAVITHRA [email or web address]) Nutritional Asmnt/Malnutrition Patient General Information Nutritional Screening Moderate Risk Diagnosis Psychosis NOS Pertinent Medical Hx/Surgical Hx HTN, Dementia Subjective Information IA, Consult: Dehisced Incision L/S Spine area Pt is a 74-year-old female admitted today (04/27) d/t refusing medications and throwing feces. Per ER chart, Pt has spinal surgery early March. Per wound care note (04/27): Central Lower Lumbo-Sacral Area: Dehisced surgical incision, present on admission. Wound bed has 90% yellow slough, 10% brown slough. No odor, no drainage. Periwound intact. Wound measures 0.9 cm x 0.5 cm x 0.2 cm. Per RN, Pt ate about 60% breakfast and lunch today. Will continue to monitor PO intake and wound healing, as RN stated the surgical wound is barely opened, not draining . HT: 56 WT: 185 LB (84.09 kg) ABW: 144 LB (65.34 kg) BMI: 29.86 (Overweight) GI: WNL, soft, non-tender BM: Not Noted I/O: 240/Not Noted Skin: Area of concern Wound: Mid back 1x1 open Ezio: 20 Diet Order: Cardiac, GUILLERMINA Estimated Energy Needs: ( Geriatric, ABW) 9555-1509 kcals (25-30 kcals/ kg) 65-78g Pro (1.0-1.2 g/kg) 8269-0762 ml (25-30 ml/kg) Current Diet Order/ Nutrition Support Cardiac, GUILLERMINA Pertinent Medications Maalox (PRN), Pepcid, MOM (PRN ) Pertinent Labs 04/27: Hgb/Hct 12.1/36.7, Na 133 , BUN/Cr 28/0.5, Glucose 110, Alk Phos 121, Alb 3.5 Nutritional Hx/Data Height 1.68 m Height (Calculated Centimeters) 167.6 Current Weight (lbs) 83.915 kg Weight (Calculated Kilograms) 83.9 Weight (Calculated Grams) 44986.6 [place] Body Weight 130lb (59.09 kg) % [place] Body Weight 142 Body Mass Index (BMI) 29.8 Weight Status Overweight GI Symptoms GI Symptoms None Last BM Not noted Skin Integrity/Comment: Skin: Area of concern Wound: Mid back 1x1 open Ezio: 20 Current %PO Fair (50-74%) Estimated Nutritional Goals BEE in Kcals: Adj wt of IBW Calories/Kcals/Kg 25-30 Kcals Calculated 0500-4335 Protein: Adj wt of IBW Protein g/k.0-1.2 Protein Calculated 65-78 Fluid: ml 3003-4305 Nutritional Problem 1. Problem Problem Increased nutrient utilization Etiology r/t wound healing Signs/Symptoms: dehisced Incision L/S Spine area Malnutrition Related to Morbid Obesity Malnutrition related to morbid obesity No Intervention/Recommendation Comments 1. Continue with Cardiac, GUILLERMINA diet as ordered. 2. Continue to follow wound care instructions per note. Expected Outcomes/Goals Expected Outcomes/Goals 1. PO intake to meet 75% of nutritional needs. 2 .Monitor PO intake, wt, nutrition related labs, and skin integrity to trend WNL. 3. F/U as moderate risk in 3-5 days, 04/29-04/30
--- NOTE | 2019-05-12 15:53 | Progress Notes ---
DATE: 05/12/2019 SUBJECTIVE: Staff was spoken to. The patient is interviewed. Mood is noted to be irritable. Affect is constricted. The patient's insight and judgment are noted to be still impaired. Impulse control is noted to be limited. Coping skills are noted to be limited. The patient has been having difficult time to cope with the stress. No side effects to the medications are noted at this time. ASSESSMENT: The patient is still paranoid and is able to tolerate the Seroquel, but the patient is awaiting placement. PLAN: To continue the patient with the supportive therapy and followup. [facility]# [id number]
[2019-05-13] MEDS: Venelex 60gm Tube TP SCH (09:16)
--- NOTE | 2019-05-13 09:38 | Internal Medicine Prog Note ---
Internal Medicine Subjective - Subjective Patient is:: awake, verbal, agitated, confused, other (pt still irritable judgment impaired) Per staff patient has:: no adverse event, no episodes of fall Internal Medicine Objective - Results Result Diagrams: 04/27/19 01:40 04/27/19 01:40 Recent Labs: Laboratory Last Values WBC 8.4 Th/cmm (4.8-10.8) 04/27/19 01:40 RBC 4.09 Mil/cmm (3.80-5.20) 04/27/19 01:40 Hgb 12.1 gm/dL (12-16) 04/27/19 01:40 Hct 36.7 % (41.0-60) L 04/27/19 01:40 MCV 89.6 fl (81-100) 04/27/19 01:40 MCH 29.7 pg (27.0-31.0) 04/27/19 01:40 MCHC Differential 33.1 pg (28.0-36.0) 04/27/19 01:40 RDW 14.9 % (11.5-20.0) 04/27/19 01:40 Plt Count 295 Th/cmm (150-400) 04/27/19 01:40 MPV 7.3 fl 04/27/19 01:40 Neutrophils % 50.1 % (40.0-80.0) 04/27/19 01:40 Lymphocytes % 35.1 % (20.0-50.0) 04/27/19 01:40 Monocytes % 11.1 % (2.0-10.0) H 04/27/19 01:40 Eosinophils % 3.7 % (0.0-5.0) 04/27/19 01:40 Basophils % 0.0 % (0.0-2.0) 04/27/19 01:40 Sodium 133 mEq/L (136-145) L 04/27/19 01:40 Potassium 3.5 mEq/L (3.5-5.1) 04/27/19 01:40 Chloride 103 mEq/L (98-107) 04/27/19 01:40 Carbon Dioxide 22.5 mEq/L (21.0-31.0) 04/27/19 01:40 Anion Gap 11.0 (7.0-16.0) 04/27/19 01:40 BUN 28 mg/dL (7-25) H 04/27/19 01:40 Creatinine 0.5 mg/dL (0.6-1.2) L 04/27/19 01:40 Est GFR ( Amer) TNP 04/27/19 01:40 Est GFR (Non-Af Amer) TNP 04/27/19 01:40 BUN/Creatinine Ratio 56.0 04/27/19 01:40 Glucose 110 mg/dL (70-105) H 04/27/19 01:40 Calcium 8.9 mg/dL (8.6-10.3) 04/27/19 01:40 Total Bilirubin 0.3 mg/dL (0.3-1.0) 04/27/19 01:40 AST 17 U/L (13-39) 04/27/19 01:40 ALT 16 U/L (7-52) 04/27/19 01:40 Alkaline Phosphatase 121 U/L (34-104) H 04/27/19 01:40 Total Protein 6.8 gm/dL (6.0-8.3) 04/27/19 01:40 Albumin 3.5 gm/dL (3.7-5.3) L 04/27/19 01:40 Globulin 3.3 gm/dL 04/27/19 01:40 Albumin/Globulin Ratio 1.1 (1.0-1.8) 04/27/19 01:40 Triglycerides 166 mg/dL (<150) H 04/27/19 01:40 Cholesterol 168 mg/dL (<200) 04/27/19 01:40 LDL Cholesterol Direct 120 mg/dL (75-193) 04/27/19 01:40 HDL Cholesterol 35 mg/dL (23-92) 04/27/19 01:40 TSH 3.64 uIU/ml (0.34-5.60) 04/27/19 01:40 RPR NONREACTIVE (NONREACTIVE) 04/27/19 01:40 - Physical Exam Vitals and I&O: Vital Signs Temp 98.2 F 05/13/19 06:23 Pulse 84 05/13/19 06:23 Resp 20 05/13/19 06:23 BP 102/58 05/13/19 06:23 Pulse Ox 95 05/13/19 06:23 Intake & Output 05/12/19 05/13/19 05/13/19 18:59 06:59 18:59 Intake Total 1200 Balance 1200 Intake: Oral 1200 Other: # Bowel Movements 1 Active Medications: Current Medications Acetaminophen (Tylenol) 650 mg PO Q4HR PRN PRN Reason: Mild Pain / Temp above 100 Stop: 06/26/19 04:09 Last Admin: 05/09/19 09:48 Dose: 650 mg Al Hydrox/Mg Hydrox/Simethicone (Maalox) 30 ml PO Q4HR PRN PRN Reason: GI DISTRESS Stop: 06/26/19 04:09 Amlodipine Besylate (Norvasc) 10 mg PO DAILY ALENA Stop: 06/26/19 08:59 Last Admin: 05/13/19 09:16 Dose: Not Given Aspirin (Ecotrin) 81 mg PO DAILY ALENA Stop: 06/26/19 08:59 Last Admin: 05/13/19 09:16 Dose: 81 mg Bisacodyl (Dulcolax 10 Mg Supp) 10 mg RC DAILY PRN PRN Reason: IF MOM INEFFECTIVE Stop: 07/01/19 09:41 [place] Oil/[place] Balsam/Trypsin (Venelex) 1 appl TP DAILY ALENA Stop: 06/26/19 13:14 Last Admin: 05/13/19 09:16 Dose: 1 appl Donepezil HCl (Aricept) 10 mg PO HS ALENA Stop: 06/26/19 20:59 Last Admin: 05/12/19 21:42 Dose: 10 mg Famotidine (Pepcid) 20 mg PO DAILY ALENA; Protocol Stop: 06/26/19 08:59 Last Admin: 05/13/19 09:16 Dose: 20 mg Ibuprofen (Motrin) 800 mg PO BID PRN PRN Reason: Pain (Moderate) Stop: 06/26/19 04:16 Last Admin: 05/12/19 16:38 Dose: 800 mg Ketoconazole (Nizoral 2% Cream) 0 appl TP DAILY ALENA Stop: 06/26/19 08:59 Last Admin: 05/13/19 09:17 Dose: 1 appl Lorazepam (Ativan) 0.5 mg PO Q4HR PRN; Protocol PRN Reason: Agitation Stop: 07/03/19 16:16 Last Admin: 05/10/19 21:07 Dose: 0.5 mg Magnesium Hydroxide (Milk Of Magnesia) 30 ml PO HS PRN PRN Reason: Constipation Memantine (Namenda) 5 mg PO BID ALENA Stop: 07/01/19 16:59 Last Admin: 05/13/19 09:16 Dose: 5 mg Quetiapine Fumarate (Seroquel) 25 mg PO BID ALENA; Protocol Stop: 07/09/19 08:59 Last Admin: 05/13/19 09:16 Dose: 25 mg Zolpidem Tartrate (Ambien) 5 mg PO HS PRN PRN Reason: Insomnia Stop: 07/03/19 16:18 Last Admin: 05/12/19 21:43 Dose: 5 mg General: demented, NAD HEENT: NC/AT Neck: Supple, No JVD Lungs: CTAB Cardiovascular: RRR, Normal S1, Normal S2 Abdomen: soft, non-tender Extremities: clear Neurological: no change Internal Medicine Assmt/Plan - Assessment Assessment: Paranoia. Demented. Psychiatric disorder. Hypertension. Gerd. Mild Hyponatremia. Tachycardia. - Plan Plan: Continue current treatment plan. Monitor Labs.Continue current medications Continue to monitor VS Monitor Diet/Nutritional support. Psych management per Psychiatry. Pain Management. PT/OT prn Safety precaution, Fall precaution, frequent nursing round. Supportive care. Continue collaborating with consulting specialists, case management and nursing team. Nutritional Asmnt/Malnutr-PDOC - Dietary Evaluation Malnutrition Findings (Please click <Entered> for more info): Nutritional Asmnt/Malnutrition Start: 04/27/19 16: 52 Text: Status: Complete Freq: Protocol: Document 04/27/19 16:52 PAVITHRA (Rec: 04/27/19 16:55 PAVITHRA [email or web address]) Nutritional Asmnt/Malnutrition Patient General Information Nutritional Screening Moderate Risk Diagnosis Psychosis NOS Pertinent Medical Hx/Surgical Hx HTN, Dementia Subjective Information IA, Consult: Dehisced Incision L/S Spine area Pt is a 74-year-old female admitted today (04/27) d/t refusing medications and throwing feces. Per ER chart, Pt has spinal surgery early March. Per wound care note (04/27): Central Lower Lumbo-Sacral Area: Dehisced surgical incision, present on admission. Wound bed has 90% yellow slough, 10% brown slough. No odor, no drainage. Periwound intact. Wound measures 0.9 cm x 0.5 cm x 0.2 cm. Per RN, Pt ate about 60% breakfast and lunch today. Will continue to monitor PO intake and wound healing, as RN stated the surgical wound is barely opened, not draining . HT: 56 WT: 185 LB (84.09 kg) ABW: 144 LB (65.34 kg) BMI: 29.86 (Overweight) GI: WNL, soft, non-tender BM: Not Noted I/O: 240/Not Noted Skin: Area of concern Wound: Mid back 1x1 open Ezio: 20 Diet Order: Cardiac, GUILLERMINA Estimated Energy Needs: ( Geriatric, ABW) 5072-9994 kcals (25-30 kcals/ kg) 65-78g Pro (1.0-1.2 g/kg) 5591-9326 ml (25-30 ml/kg) Current Diet Order/ Nutrition Support Cardiac, GUILLERMINA Pertinent Medications Maalox (PRN), Pepcid, MOM (PRN ) Pertinent Labs 04/27: Hgb/Hct 12.1/36.7, Na 133 , BUN/Cr 28/0.5, Glucose 110, Alk Phos 121, Alb 3.5 Nutritional Hx/Data Height 5 ft 6 in Height (Calculated Centimeters) 167.6 Current Weight (lbs) 185 lb Weight (Calculated Kilograms) 83.9 Weight (Calculated Grams) 71755.6 [place] Body Weight 130lb (59.09 kg) % [place] Body Weight 142 Body Mass Index (BMI) 29.8 Weight Status Overweight GI Symptoms GI Symptoms None Last BM Not noted Skin Integrity/Comment: Skin: Area of concern Wound: Mid back 1x1 open Ezio: 20 Current %PO Fair (50-74%) Estimated Nutritional Goals BEE in Kcals: Adj wt of IBW Calories/Kcals/Kg 25-30 Kcals Calculated 0637-6463 Protein: Adj wt of IBW Protein g/k.0-1.2 Protein Calculated 65-78 Fluid: ml 5967-6020 Nutritional Problem 1. Problem Problem Increased nutrient utilization Etiology r/t wound healing Signs/Symptoms: dehisced Incision L/S Spine area Malnutrition Related to Morbid Obesity Malnutrition related to morbid obesity No Intervention/Recommendation Comments 1. Continue with Cardiac, GUILLERMINA diet as ordered. 2. Continue to follow wound care instructions per note. Expected Outcomes/Goals Expected Outcomes/Goals 1. PO intake to meet 75% of nutritional needs. 2 .Monitor PO intake, wt, nutrition related labs, and skin integrity to trend WNL. 3. F/U as moderate risk in 3-5 days, 04/29-04/30
--- NOTE | 2019-05-13 17:31 | Progress Notes ---
DATE: 05/13/2019 PSYCHIATRIC PROGRESS NOTE SUBJECTIVE: Staff was spoken to. The patient is interviewed. Mood is noted to be less irritable. Affect is appropriate. The patient's aggressive behavior is concerned. No side effects to the medications are noted. The patient's insight and judgment at this time are noted to be improving. Impulse control seems to be fair. The patient is redirectable. ASSESSMENT: The patient is still demented, but psychosis is resolving. PLAN: To continue the patient with the current medications and followup. JOB# [id number]
[2019-05-14] MEDS: Venelex 60gm Tube TP SCH (09:02)
--- NOTE | 2019-05-14 12:39 | Internal Medicine Prog Note ---
Internal Medicine Subjective - Subjective Service Date: 05/14/19 Patient seen and examined:: with staff Patient is:: awake, verbal, agitated, confused, other (pt still irritable judgment impaired) Patient Complaints of:: other (Patient is very confused ) Per staff patient has:: no adverse event, no episodes of fall Internal Medicine Objective - Results Result Diagrams: 04/27/19 01:40 04/27/19 01:40 Recent Labs: Laboratory Last Values WBC 8.4 Th/cmm (4.8-10.8) 04/27/19 01:40 RBC 4.09 Mil/cmm (3.80-5.20) 04/27/19 01:40 Hgb 12.1 gm/dL (12-16) 04/27/19 01:40 Hct 36.7 % (41.0-60) L 04/27/19 01:40 MCV 89.6 fl (81-100) 04/27/19 01:40 MCH 29.7 pg (27.0-31.0) 04/27/19 01:40 MCHC Differential 33.1 pg (28.0-36.0) 04/27/19 01:40 RDW 14.9 % (11.5-20.0) 04/27/19 01:40 Plt Count 295 Th/cmm (150-400) 04/27/19 01:40 MPV 7.3 fl 04/27/19 01:40 Neutrophils % 50.1 % (40.0-80.0) 04/27/19 01:40 Lymphocytes % 35.1 % (20.0-50.0) 04/27/19 01:40 Monocytes % 11.1 % (2.0-10.0) H 04/27/19 01:40 Eosinophils % 3.7 % (0.0-5.0) 04/27/19 01:40 Basophils % 0.0 % (0.0-2.0) 04/27/19 01:40 Sodium 133 mEq/L (136-145) L 04/27/19 01:40 Potassium 3.5 mEq/L (3.5-5.1) 04/27/19 01:40 Chloride 103 mEq/L (98-107) 04/27/19 01:40 Carbon Dioxide 22.5 mEq/L (21.0-31.0) 04/27/19 01:40 Anion Gap 11.0 (7.0-16.0) 04/27/19 01:40 BUN 28 mg/dL (7-25) H 04/27/19 01:40 Creatinine 0.5 mg/dL (0.6-1.2) L 04/27/19 01:40 Est GFR ( Amer) TNP 04/27/19 01:40 Est GFR (Non-Af Amer) TNP 04/27/19 01:40 BUN/Creatinine Ratio 56.0 04/27/19 01:40 Glucose 110 mg/dL (70-105) H 04/27/19 01:40 Calcium 8.9 mg/dL (8.6-10.3) 04/27/19 01:40 Total Bilirubin 0.3 mg/dL (0.3-1.0) 04/27/19 01:40 AST 17 U/L (13-39) 04/27/19 01:40 ALT 16 U/L (7-52) 04/27/19 01:40 Alkaline Phosphatase 121 U/L (34-104) H 04/27/19 01:40 Total Protein 6.8 gm/dL (6.0-8.3) 04/27/19 01:40 Albumin 3.5 gm/dL (3.7-5.3) L 04/27/19 01:40 Globulin 3.3 gm/dL 04/27/19 01:40 Albumin/Globulin Ratio 1.1 (1.0-1.8) 04/27/19 01:40 Triglycerides 166 mg/dL (<150) H 04/27/19 01:40 Cholesterol 168 mg/dL (<200) 04/27/19 01:40 LDL Cholesterol Direct 120 mg/dL (75-193) 04/27/19 01:40 HDL Cholesterol 35 mg/dL (23-92) 04/27/19 01:40 TSH 3.64 uIU/ml (0.34-5.60) 04/27/19 01:40 RPR NONREACTIVE (NONREACTIVE) 04/27/19 01:40 - Physical Exam Vitals and I&O: Vital Signs Temp 97.6 F 05/14/19 06:31 Pulse 78 05/14/19 06:31 Resp 19 05/14/19 06:31 BP 130/68 08/19/19 06:31 Pulse Ox 97 05/14/19 06:31 Intake & Output 05/13/19 05/14/19 05/14/19 18:59 06:59 18:59 Intake Total 900 240 Balance 900 240 Intake: Oral 900 240 Other: # Voids 4 3 # Bowel Movements 1 0 Active Medications: Current Medications Acetaminophen (Tylenol) 650 mg PO Q4HR PRN PRN Reason: Mild Pain / Temp above 100 Stop: 06/26/19 04:09 Last Admin: 05/09/19 09:48 Dose: 650 mg Al Hydrox/Mg Hydrox/Simethicone (Maalox) 30 ml PO Q4HR PRN PRN Reason: GI DISTRESS Stop: 06/26/19 04:09 Amlodipine Besylate (Norvasc) 10 mg PO DAILY [facility] Stop: 06/26/19 08:59 Last Admin: 05/14/19 09:01 Dose: Not Given Aspirin (Ecotrin) 81 mg PO DAILY ALENA Stop: 06/26/19 08:59 Last Admin: 05/14/19 09:01 Dose: 81 mg Bisacodyl (Dulcolax 10 Mg Supp) 10 mg RC DAILY PRN PRN Reason: IF MOM INEFFECTIVE Stop: 07/01/19 09:41 [employer] Oil/[place] Balsam/Trypsin (Venelex) 1 appl TP DAILY ALENA Stop: 06/26/19 13:14 Last Admin: 05/14/19 09:02 Dose: 1 appl Donepezil HCl (Aricept) 10 mg PO HS ALENA Stop: 06/26/19 20:59 Last Admin: 05/13/19 21:41 Dose: 10 mg Famotidine (Pepcid) 20 mg PO DAILY ALENA; Protocol Stop: 06/26/19 08:59 Last Admin: 05/14/19 09:01 Dose: 20 mg Ibuprofen (Motrin) 800 mg PO BID PRN PRN Reason: Pain (Moderate) Stop: 06/26/19 04:16 Last Admin: 05/12/19 16:38 Dose: 800 mg Ketoconazole (Nizoral 2% Cream) 0 appl TP DAILY ALENA Stop: 06/26/19 08:59 Last Admin: 05/14/19 09:02 Dose: 1 appl Lorazepam (Ativan) 0.5 mg PO Q4HR PRN; Protocol PRN Reason: Agitation Stop: 07/03/19 16:16 Last Admin: 05/14/19 09:01 Dose: 0.5 mg Magnesium Hydroxide (Milk Of Magnesia) 30 ml PO HS PRN PRN Reason: Constipation Memantine (Namenda) 5 mg PO BID ALENA Stop: 07/01/19 16:59 Last Admin: 05/14/19 09:01 Dose: 5 mg Quetiapine Fumarate (Seroquel) 25 mg PO BID ALENA; Protocol Stop: 07/09/19 08:59 Last Admin: 05/14/19 09:01 Dose: 25 mg Zolpidem Tartrate (Ambien) 5 mg PO HS PRN PRN Reason: Insomnia Stop: 07/03/19 16:18 Last Admin: 05/13/19 21:41 Dose: 5 mg Physical Exam: Patient is demented but psychosis is improving. General: demented, NAD HEENT: NC/AT Neck: Supple, No JVD Lungs: CTAB Cardiovascular: RRR, Normal S1, Normal S2 Abdomen: soft, non-tender Extremities: clear Neurological: no change Internal Medicine Assmt/Plan - Assessment Assessment: Paranoia. Demented. Psychiatric disorder. Hypertension. Gerd. Mild Hyponatremia. Tachycardia. - Plan Plan: Continue present meds as directed. as per psych monitor vitals/diet labs Safety precaution. Supportive care. Fall precaution Continue present care management. Nutritional Asmnt/Malnutr-PDOC - Dietary Evaluation Malnutrition Findings (Please click <Entered> for more info): Nutritional Asmnt/Malnutrition Start: 04/27/19 16: 52 Text: Status: Complete Freq: Protocol: Document 04/27/19 16:52 PAVITHRA (Rec: 04/27/19 16:55 PAVITHRA [email or web address]) Nutritional Asmnt/Malnutrition Patient General Information Nutritional Screening Moderate Risk Diagnosis Psychosis NOS Pertinent Medical Hx/Surgical Hx HTN, Dementia Subjective Information IA, Consult: Dehisced Incision L/S Spine area Pt is a 74-year-old female admitted today (04/27) d/t refusing medications and throwing feces. Per ER chart, Pt has spinal surgery early March. Per wound care note (04/27): Central Lower Lumbo-Sacral Area: Dehisced surgical incision, present on admission. Wound bed has 90% yellow slough, 10% brown slough. No odor, no drainage. Periwound intact. Wound measures 0.9 cm x 0.5 cm x 0.2 cm. Per RN, Pt ate about 60% breakfast and lunch today. Will continue to monitor PO intake and wound healing, as RN stated the surgical wound is barely opened, not draining . HT: 56 WT: 185 LB (84.09 kg) ABW: 144 LB (65.34 kg) BMI: 29.86 (Overweight) GI: WNL, soft, non-tender BM: Not Noted I/O: 240/Not Noted Skin: Area of concern Wound: Mid back 1x1 open Ezio: 20 Diet Order: Cardiac, GUILLERMINA Estimated Energy Needs: ( Geriatric, ABW) 2395-7610 kcals (25-30 kcals/ kg) 65-78g Pro (1.0-1.2 g/kg) 7470-3837 ml (25-30 ml/kg) Current Diet Order/ Nutrition Support Cardiac, GUILLERMINA Pertinent Medications Maalox (PRN), Pepcid, MOM (PRN ) Pertinent Labs 04/27: Hgb/Hct 12.1/36.7, Na 133 , BUN/Cr 28/0.5, Glucose 110, Alk Phos 121, Alb 3.5 Nutritional Hx/Data Height 1.68 m Height (Calculated Centimeters) 167.6 Current Weight (lbs) 83.915 kg Weight (Calculated Kilograms) 83.9 Weight (Calculated Grams) 38025.6 [place] Body Weight 130lb (59.09 kg) % [place] Body Weight 142 Body Mass Index (BMI) 29.8 Weight Status Overweight GI Symptoms GI Symptoms None Last BM Not noted Skin Integrity/Comment: Skin: Area of concern Wound: Mid back 1x1 open Ezio: 20 Current %PO Fair (50-74%) Estimated Nutritional Goals BEE in Kcals: Adj wt of IBW Calories/Kcals/Kg 25-30 Kcals Calculated 0366-9043 Protein: Adj wt of IBW Protein g/k.0-1.2 Protein Calculated 65-78 Fluid: ml 2819-0458 Nutritional Problem 1. Problem Problem Increased nutrient utilization Etiology r/t wound healing Signs/Symptoms: dehisced Incision L/S Spine area Malnutrition Related to Morbid Obesity Malnutrition related to morbid obesity No Intervention/Recommendation Comments 1. Continue with Cardiac, GUILLERMINA diet as ordered. 2. Continue to follow wound care instructions per note. Expected Outcomes/Goals Expected Outcomes/Goals 1. PO intake to meet 75% of nutritional needs. 2 .Monitor PO intake, wt, nutrition related labs, and skin integrity to trend WNL. 3. F/U as moderate risk in 3-5 days, 04/29-04/30
--- NOTE | 2019-05-15 03:38 | Progress Notes ---
DATE: 05/14/2019 PSYCHIATRIC PROGRESS NOTE SUBJECTIVE: Staff was spoken to. The patient is interviewed. Mood is noted to be less irritable. Affect is appropriate. She is not suicidal or homicidal. Insight and judgment at this time are noted to be improving. Impulse control seems to be fair. No side effects to the medications are noted. The patient has been willing to comply with the treatment. Her aggressive behavior seems to be under control today. ASSESSMENT: The patient is stabilizing. PLAN: To continue the patient with her current medications and discharge the patient today for followup on an outpatient basis. JOB# [id number]
== END 2019-05-14 14:30 | DRG 885 ==
LOC: ER 00:54 → GERO2 02:37 → GERO 02:44
PROVIDERS: ADMIT Psychiatry & Neurology Psychiatry; ATTEND Psychiatry & Neurology Psychiatry
DX: F29 Unspecified psychosis not due to a substance or known physiological condition (principal); E87.1 Hypo-osmolality and hyponatremia; F02.81 Dementia in other diseases classified elsewhere, unspecified severity, with behavioral disturbance; I10 Essential (primary) hypertension; K21.9 Gastro-esophageal reflux disease without esophagitis; R00.0 Tachycardia, unspecified; G30.9 Alzheimer's disease, unspecified; F39 Unspecified mood [affective] disorder; Z83.3 Family history of diabetes mellitus
CPT/HCPCS: 36415-UA; 80053-TC; 80061-TC; 84443-TC; 85025-TC; 86592-TC; 93005; 97530; X3904; Z7610